=== PATIENT | male | born 1935 | race Caucasian/White ===

== ENCOUNTER 2018-10-30 10:47 | Emergency (ER) | payer MEDICARE ==
[2018-10-30 11:06] LABS: BASO % 0.6 % (0-6); EOS % 2.1 % (0-6); GRAN % 74.8 % (47-80); HEMATOCRIT 43.1 % (42.0-52.0); HEMOGLOBIN 13.6 gm/dl (14.0-18.0); LYMPH % 16.5 % (16-45); MEAN CELL VOLUME 94.1 fl (81-97); MEAN CORPUSCULAR HEMOGLOBIN 29.6 pg (27-33); MEAN CORPUSCULAR HGB CONC 31.6 g/dl (32-36); MEAN PLATELET VOLUME 9.1 fl (7.4-10.4); PLATELET COUNT 235 K/uL (130-400); RED BLOOD COUNT 4.58 M/uL (4.40-5.70); RED CELL DISTRIBUTION WIDTH 13.4 % (11.5-14.5); WHITE BLOOD COUNT W/O DIFF 6.7 K/uL (4.2-12.2)
[2018-10-30 11:09] LABS: URINE APPEARANCE CLEAR; URINE BILIRUBIN NEGATIVE (NEGATIVE); URINE BLOOD TRACE-I (NEGATIVE); URINE COLOR YELLOW; URINE GLUCOSE (UA) NEGATIVE (NEGATIVE); URINE KETONE 15 mg/dL (NEGATIVE); URINE LEUKOCYTE ESTERASE NEGATIVE (NEGATIVE); URINE NITRITE NEGATIVE (NEGATIVE); URINE UROBILINOGEN 0.2 E.U./dL (0.20 - 1.00)
--- NOTE | 2018-10-30 11:12 | Emergency Department Record ---
History of Present Illness - General Chief Complaint: Fall Injury Stated Complaint: FELL OUT OF BED Time Seen by Provider: 10/30/18 10:50 Source: Patient, Family, EMS Mode of Arrival: Stretcher Limitations: No limitations - History of Present Illness Initial Comments: family found pt on floor this am. pt states he fell from a standing position. he states he hit his head and his l shoulder hurts. there was no loc. MD Complaint: Fall -: Unknown Fall From: Standing When Fall Occurred: Unsure Fall Witnessed: No Place Fall Occurred: Home Loss of Consciousness: Unsure Prolonged Down Time?: Unclear Symptoms Prior to Fall: None Location: Head Location - Extremities: Left: Shoulder Severity: Moderate Associated Symptoms: Denies - [place] Coma Scale Eye Response: (4) Open spontaneously Motor Response: (6) Obeys commands Verbal Response: (5) Oriented Michael Total: 15 - Related Data Home Medications Medication Instructions Recorded Confirmed Last Taken Acetaminophen [Tylenol Extra 500 mg PO BID 10/30/18 10/30/18 Unknown Strength] Ascorbic Acid [Vitamin C with Nora 1,000 mg PO QAM 10/30/18 10/30/18 Unknown Hips] Brimonidine Tartrate/Timolol 5 ml OP DAILY 10/30/18 10/30/18 Unknown [Combigan 0.2%-0.5% Eye Drops] Calcium Carbonate/Vitamin D3 1 each PO QHS 10/30/18 10/30/18 Unknown [Calcium 500 + Vit D3 400 Tab] Carvedilol 6.25 mg PO BID 10/30/18 10/30/18 Unknown Cholecalciferol (Vitamin D3) 2,000 unit PO QAM 10/30/18 10/30/18 Unknown [Vitamin D3] Cyanocobalamin (Vitamin B-12) 3,000 mcg PO QAM 10/30/18 10/30/18 Unknown [B-12 Dual Spectrum] Insulin Regular, Human [Novolin R] 1 unit IJ DAILY 10/30/18 10/30/18 Unknown Isosorbide Mononitrate [Imdur] 30 mg PO QHS 10/30/18 10/30/18 Unknown Isosorbide Mononitrate [Imdur] 60 mg PO QAM 10/30/18 10/30/18 Unknown Latanoprost/Pf [Latanoprost 0.005% 7.5 ml OP QHS 10/30/18 10/30/18 Unknown Eye Drop] Levetiracetam 500 mg PO BID 10/30/18 10/30/18 Unknown Levothyroxine Sodium 25 mcg PO QAM 10/30/18 10/30/18 Unknown Loratadine 10 mg PO QHS 10/30/18 10/30/18 Unknown Metoprolol Succinate 100 mg PO QAM 10/30/18 10/30/18 Unknown Netarsudil Mesylate [Rhopressa] 2.5 ml OP QAM 10/30/18 10/30/18 Unknown Ubidecarenone [Coq-10] 200 mg PO QAM 10/30/18 10/30/18 Unknown Allergies Allergy/AdvReac Type Severity Reaction Status Date / Time No Known Drug Allergies Allergy Verified 10/30/18 11:31 Travel Screening - Travel/Exposure Within Last 30 Days Have you traveled within the last 30 days?: No Review of Systems Reviewed: No additional complaints except as noted below Constitutional: Reports: As per HPI. Denies: Chills, Fever, Malaise, Night sweats, Weakness, Weight change Eyes: Reports: As per HPI. Denies: Eye discharge, Eye pain, Photophobia, Vision change ENT: Reports: As per HPI. Denies: Congestion, Dental pain, Ear pain, Epistaxis , Hearing loss, Throat pain Respiratory: Reports: As per HPI. Denies: Cough, Dyspnea, Hemoptysis, Stridor, Wheezes Cardiovascular: Reports: As per HPI. Denies: Arrhythmia, Chest pain, Dyspnea on exertion, Edema, Murmurs, Orthopnea, Palpitations, Paroxysmal nocturnal dyspnea, Rheumatic Fever, Syncope Endocrine: Reports: As per HPI. Denies: Fatigue, Heat or cold intolerance, Polydipsia, Polyuria Gastrointestinal: Reports: As per HPI. Denies: Abdominal pain, Constipation, Diarrhea, Hematemesis, Hematochezia, Melena, Nausea, Vomiting Genitourinary: Reports: As per HPI. Denies: Dysuria, Frequency, Hematuria, Incontinence, Retention, Testicular pain, Testicular mass, Urgency Musculoskeletal: Reports: As per HPI. Denies: Arthralgia, Back pain, Gout, Joint swelling, Myalgia, Neck pain Skin: Reports: As per HPI. Denies: Bruising, Change in color, Change in hair/ nails, Lesions, Pruritus, Rash Neurological: Reports: As per HPI. Denies: Abnormal gait, Confusion, Headache, Numbness, Paresthesias, Seizure, Tingling, Tremors, Vertigo, Weakness Psychiatric: Reports: As per HPI. Denies: Anxiety, Auditory hallucinations, Depression, Homicidal thoughts, Suicidal thoughts, Visual hallucinations Hematological/Lymphatic: Reports: As per HPI. Denies: Anemia, Blood Clots, Easy bleeding, Easy bruising, Swollen glands Past Medical History - SOCIAL HISTORY Smoking Status: Former smoker Alcohol Use: None Drug Use: None - RESPIRATORY Hx Respiratory Disorders: Yes Hx Bronchitis: Yes Hx COPD: Yes Hx Dyspnea: Yes - CARDIOVASCULAR Hx Cardio Disorders: Yes Hx Abnormal EKG: Yes Hx Cardiac Cath: Yes Hx Edema: Yes Hx Hypertension: Yes Hx Irregular Heartbeat: Yes - NEURO Hx Neuro Disorders: Yes Hx Headaches: Yes (frequent) - GI Hx GI Disorders: No - Hx Genitourinary Disorders: Yes Hx Prostate Problems: Yes (prostate surgery) - ENDOCRINE Hx Endocrine Disorders: Yes Hx Diabetes: Yes Hx Thyroid Disease: Yes - MUSCULOSKELETAL Hx Musculoskeletal Disorders: Yes Comment:: lumbar laminectomy - PSYCH Hx Psych Problems: No - HEMATOLOGY/ONCOLOGY Hx Hematology/Oncology Disorders: No Family Medical History Any Significant Family History?: Yes Hx Diabetes: Father, Mother Hx Heart Disease: Father Physical Exam - General General Appearance: Alert, Oriented x3, Cooperative, Mild distress - Head Head exam: Normal inspection - Eye Eye exam: Normal appearance, PERRL, EOMI Pupils: Normal accommodation - ENT ENT exam: Normal exam, Mucous membranes moist, Normal external ear exam, Normal orophraynx Ear exam: Normal external inspection. negative: External canal tenderness Nasal Exam: Normal inspection. negative: Discharge, Sinus tenderness Mouth exam: Normal external inspection, Tongue normal Teeth exam: Normal inspection. negative: Dental caries Throat exam: Normal inspection. negative: Tonsillar erythema, Tonsillar exudate - Neck Neck exam: Normal inspection, Full ROM. negative: Tenderness - Respiratory Respiratory exam: Normal lung sounds bilaterally. negative: Respiratory distress - Cardiovascular Cardiovascular Exam: Regular rate, Normal rhythm, Normal heart sounds - GI/Abdominal GI/Abdominal exam: Soft, Normal bowel sounds. negative: Tenderness - Rectal Rectal exam: Deferred - exam: Deferred - Extremities Extremities exam: Normal inspection, Full ROM, Normal capillary refill, Tenderness (l shoulder) - Back Back exam: Reports: Normal inspection, Full ROM. Denies: Muscle spasm, Rash noted, Tenderness - Neurological Neurological exam: Alert, CN II-XII intact, Oriented X3 - Psychiatric Psychiatric exam: Normal affect, Normal mood - Skin Skin exam: Dry, Intact, Normal color, Warm Course Vital Signs 10/30/18 10:54 Temperature 97.7 F Pulse Rate 83 Respiratory 18 Rate Pulse Ox 89 L - Reevaluation(s) Reevaluation #1: 10/30/18 13:10 pt did well. pt d/w dr mustafa Medical Decision Making - Lab Data Result diagrams: 10/30/18 10:59 10/30/18 10:59 Disposition Disposition: Discharge Clinical Impression: Multiple contusions, Pleural effusion Fall Qualifiers: Encounter type: initial encounter Qualified Code(s): W19.XXXA - Unspecified fall, initial encounter Hypertension Qualifiers: Hypertension type: essential hypertension Qualified Code(s): I10 - Essential ( primary) hypertension Disposition: Home, Self-Care Condition: (1) Good Instructions: Fall Prevention for Older Adults (ED), Pleural Effusion (ED) Additional Instructions: follow up with Dr. Mustafa next . return sooner if worse. monitor closely. discuss blood pressure with dr mustafa Forms: Patient Portal Access Quality - Quality Measures Quality Measures: N/A - Blood Pressure Screening Does Patient Have Any of the Following: Active Dx of HTN Blood Pressure Classification: Hypertensive Reading Systolic Measurement: 201 Diastolic Measurement: 93 Screening for High Blood Pressure: Patient Exclusion, Hx of HTN [G9744]
[2018-10-30 11:16] LABS: URINE EPITHELIAL CELLS NONE SEEN (FEW); URINE RBC 0 - 2 (NONE SEEN); URINE WBC NONE SEEN (0-2/hpf)
[2018-10-30 11:21] LABS: BLOOD UREA NITROGEN 21 mg/dL (8-23); CREATININE 1.1 mg/dL (0.7-1.2); EST GLOMERULAR FILTRATION RATE > 60 mL/min
[2018-10-30 11:24] LABS: GLUCOSE,RANDOM 129 mg/dL (74-109)
--- NOTE | 2018-10-31 12:36 | CT SCAN REPORT ---
EXAM: CT OF THE CERVICAL SPINE WITHOUT CONTRAST HISTORY: FALL. TECHNIQUE: Sequential axial images were obtained through the cervical spine without intravenous contrast administration. Sagittal and coronal reformatted images were performed. FINDINGS: There is multilevel degenerative change. No evidence of fracture, subluxation or perched facet. There is anterior spondylotic spurring. The prevertebral soft tissues are normal. The airway is patent. The visualized lung apices are normal. IMPRESSION: MULTILEVEL DEGENERATIVE CHANGE. NO EVIDENCE OF FRACTURE, SUBLUXATION, OR PERCHED FACET. INCIDENTAL NOTE IS MADE OF A LARGE LEFT PLEURAL EFFUSION. JOB NUMBER: [id number] [facility]
--- NOTE | 2018-10-31 12:42 | RADIOLOGY REPORT ---
EXAM: RIGHT SHOULDER HISTORY: FALL. TECHNIQUE: Three views of the right shoulder were performed. FINDINGS: There is severe degenerative change of the glenohumeral joint space. There is joint space narrowing with hypertrophic spurring of the humeral head and glenoid. The acromioclavicular joint appears normal. IMPRESSION: SEVERE DEGENERATIVE CHANGE OF THE GLENOHUMERAL JOINT SPACE. NO EVIDENCE OF FRACTURE. JOB NUMBER: [id number] [facility]
--- NOTE | 2018-10-31 12:45 | CT SCAN REPORT ---
EXAM: CT OF THE BRAIN WITHOUT CONTRAST HISTORY: FALL. TECHNIQUE: Sequential axial images were obtained from the foramen magnum to the vertex without contrast administration. FINDINGS: Age appropriate cortical atrophy with periventricular small vessel ischemia. No large territorial infarct, hemorrhage, mass effect, or midline shift. The orbits, paranasal sinuses, and mastoid air cells are normal. No depressed skull fracture. IMPRESSION: PERIVENTRICULAR SMALL VESSEL ISCHEMIA. NO ACUTE INTRACRANIAL ABNORMALITY IS APPRECIATED. JOB NUMBER: [id number] [facility]
--- NOTE | 2018-10-31 12:48 | RADIOLOGY REPORT ---
EXAM: CHEST, TWO VIEWS HISTORY: DIFFICULTY IN BREATHING. TECHNIQUE: Frontal and lateral views of the chest were performed. FINDINGS: Postop sternotomy wires. The heart size is normal. Moderate left pleural effusion. Mild pulmonary vascular congestion. Degenerative change of both shoulder girdles. IMPRESSION: 1. MODERATE LEFT PLEURAL EFFUSION. MILD PULMONARY VASCULAR CONGESTION. 2. DEGENERATIVE CHANGE OF BOTH SHOULDER GIRDLES. JOB NUMBER: [id number] [facility]
== END 2018-10-30 14:36 | disposition home or self-care (01) ==
LOC: ER 10:47
DX: S40.012A Contusion of left shoulder, initial encounter (principal); S40.011A Contusion of right shoulder, initial encounter; S00.93XA Contusion of unspecified part of head, initial encounter; J90 Pleural effusion, not elsewhere classified; I10 Essential (primary) hypertension; J44.9 Chronic obstructive pulmonary disease, unspecified; Z87.891 Personal history of nicotine dependence; Z79.84 Long term (current) use of oral hypoglycemic drugs; Z79.4 Long term (current) use of insulin; Z79.01 Long term (current) use of anticoagulants; W06.XXXA Fall from bed, initial encounter; Y92.009 Unspecified place in unspecified non-institutional (private) residence as the place of occurrence of the external cause
CPT/HCPCS: 70450; 71046; 72125; 80048; 81001; 85025; 93005; 93010; 99284

== ENCOUNTER 2019-03-22 09:42 | Emergency (ER) | payer MEDICARE ==
--- NOTE | 2019-03-22 10:03 | Emergency Department Record ---
History of Present Illness - General Stated Complaint: FALL Time Seen by Provider: 03/22/19 09:54 Source: Patient, Family, EMS (daughter and career consultant) Mode of Arrival: EMS Limitations: No limitations - History of Present Illness Initial Comments: Pt from independent living situation by EMS with C Collar in place. Pt found on floor in bathroom after fall. Not witnessed. Unsure as to symptoms prior to fall. Pt is without complaint on exam. No AVILA, neck pain, CP, or extremity pains. Alert and appropriate with answers. Daughter and career consultant present who relate recently he has been "more tired" than usual. No related hx of illness/fever. Not taking aspirin or anticoags. 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 Witnessed: No Place Fall Occurred: Home Loss of Consciousness: None Prolonged Down Time?: No Severity: Mild - Related Data Home Medications Medication Instructions Recorded Confirmed Last Taken Sertraline HCl [Zoloft] 25 mg PO QPM 03/22/19 03/22/19 03/21/19 Allergies Allergy/AdvReac Type Severity Reaction Status Date / Time No Known Drug Allergies Allergy Verified 03/22/19 10:09 Review of Systems Constitutional: Denies: Chills, Fever Eyes: Denies: Photophobia ENT: Denies: Congestion Respiratory: Denies: Cough, Dyspnea Cardiovascular: Denies: Arrhythmia, Chest pain, Syncope Endocrine: Reports: Fatigue. Denies: Polydipsia, Polyuria Gastrointestinal: Denies: Abdominal pain, Constipation, Nausea (some soft brown stool but "not diarrhea". ), Vomiting Musculoskeletal: Reports: As per HPI. Denies: Back pain, Joint swelling, Neck pain Skin: Denies: Bruising, Rash Neurological: Denies: Confusion, Headache Psychiatric: Denies: Anxiety Hematological/Lymphatic: Reports: Anemia Past Medical History - SOCIAL HISTORY Smoking Status: Former smoker Drug Use: None - RESPIRATORY Hx Respiratory Disorders: Yes Hx Bronchitis: Yes Hx COPD: Yes Hx Dyspnea: Yes - CARDIOVASCULAR Hx Cardio Disorders: Yes Hx Abnormal EKG: Yes Hx Cardiac Cath: Yes Hx Edema: Yes Hx Hypertension: Yes Hx Irregular Heartbeat: Yes - NEURO Hx Neuro Disorders: Yes Hx Headaches: Yes (frequent) - GI Hx GI Disorders: No - Hx Genitourinary Disorders: Yes Hx Prostate Problems: Yes (prostate surgery) - ENDOCRINE Hx Endocrine Disorders: Yes Hx Diabetes: Yes Hx Thyroid Disease: Yes - MUSCULOSKELETAL Hx Musculoskeletal Disorders: Yes Comment:: lumbar laminectomy - PSYCH Hx Psych Problems: No - HEMATOLOGY/ONCOLOGY Hx Hematology/Oncology Disorders: No Family Medical History Hx Diabetes: Father, Mother Hx Heart Disease: Father Physical Exam - General General Appearance: Alert, Oriented x3, Cooperative, No acute distress - Head Head exam: Atraumatic, Normocephalic, Normal inspection Head exam detail: negative: Abrasion, Contusion, General tenderness, Hematoma, Laceration - Eye Eye exam: Normal appearance, PERRL, EOMI - ENT ENT exam: Mucous membranes moist, Normal external ear exam, Normal orophraynx Ear exam: Normal external inspection Nasal Exam: Normal inspection Mouth exam: Normal external inspection - Neck Neck exam: Normal inspection, Full ROM. negative: Tenderness (No pain with palpation of posterior neck and passive ROM. ) - Respiratory Respiratory exam: Normal lung sounds bilaterally. negative: Rhonchi, Wheezes - Cardiovascular Cardiovascular Exam: Regular rate, Normal rhythm, Normal heart sounds. negative: Tachycardia Peripheral Pulses: 2+: Radial (R), Radial (L) - GI/Abdominal GI/Abdominal exam: Soft, Normal bowel sounds. negative: Distended, Tenderness - Extremities Extremities exam: Normal inspection, Full ROM. negative: Calf tenderness, Joint swelling, Tenderness (Pelvis stable, hips full ROM to figure 4 without pain. No pain to shoulders with ROM. ) - Back Back exam: Reports: Normal inspection. Denies: Paraspinal tenderness, Tenderness - Neurological Neurological exam: Alert, Oriented X3. negative: Motor sensory deficit - Psychiatric Psychiatric exam: Normal affect, Normal mood - Skin Skin exam: Normal color. negative: Rash Course - Reevaluation(s) Reevaluation #1: 03/22/19 10:06 No evidence of trauma from reported fall. Hx of "tired" and we will check labs and EKG. Family at bedside. Procedures - EKG Initial Date: 03/22/19 Time: 10:10 EKG: No Acute Changes (no change from 10-30-18) Medical Decision Making - Lab Data Result diagrams: 03/22/19 10:00 03/22/19 10:00 Disposition Disposition: Discharge Clinical Impression: Fall in elderly patient Disposition: Home, Self-Care Condition: (2) Stable Instructions: Fall Prevention for Older Adults (ED) Additional Instructions: Continue current care and see your physician in 2-3 days. Return here as needed to the ED. Fall precautions at home. Forms: Patient Portal Access Time of Disposition: 12:04 Quality - Quality Measures Quality Measures: N/A - Blood Pressure Screening Does Patient Have Any of the Following: No, Active Dx of HTN Blood Pressure Classification: Hypertensive Reading Systolic Measurement: 195 Diastolic Measurement: 98 Screening for High Blood Pressure: Patient Exclusion, Hx of HTN [G9744]
[2019-03-22 10:13] LABS: ABSOLUTE NEUTROPHIL COUNT 6.98; HEMOGLOBIN 14.1 gm/dl (14.0-18.0); MEAN CELL VOLUME 95.4 fl (81-97); MEAN CORPUSCULAR HEMOGLOBIN 30.6 pg (27-33); MEAN PLATELET VOLUME 9.8 fl (7.4-10.4); PLATELET COUNT 274 K/uL (130-400); RED BLOOD COUNT 4.61 M/uL (4.40-5.70); RED CELL DISTRIBUTION WIDTH 13.7 % (11.5-14.5); WHITE BLOOD COUNT W/O DIFF 8.5 K/uL (4.2-12.2)
[2019-03-22 10:21] LABS: PLATELET ESTIMATE NORMAL (NORMAL)
[2019-03-22 10:22] LABS: BLOOD UREA NITROGEN 18 mg/dL (8-23); EST GLOMERULAR FILTRATION RATE > 60 mL/min
[2019-03-22 10:25] LABS: GLUCOSE,RANDOM 133 mg/dL (74-109)
[2019-03-22] MEDS ORDERED: ONDANSETRON HCL IV 4 MG/2 ML VIAL IVP ONE (11:24)
--- NOTE | 2019-03-24 08:53 | RADIOLOGY REPORT ---
EXAM: CHEST, TWO VIEWS HISTORY: FALL. HISTORY OF PLEURAL EFFUSION. TECHNIQUE: Two views of the chest were obtained. Comparison: 01/14/19. FINDINGS: Previous median sternotomy and CABG. The cardiomediastinal silhouette is stable. There is a similar moderate left basilar opacity probably a combination of pleural fluid and atelectasis/infiltrate. The right lung is grossly clear. Moderate degenerative changes throughout the thoracic spine. IMPRESSION: SIMILAR MODERATE LEFT BASILAR OPACITY PROBABLY A COMBINATION OF PLEURAL FLUID AND ATELECTASIS/INFILTRATE. JOB [facility]BER: [id number] [facility]
== END 2019-03-22 12:22 | disposition home or self-care (01) ==
LOC: ER 09:42
DX: Z91.81 History of falling (principal); W18.30XA Fall on same level, unspecified, initial encounter; Y92.009 Unspecified place in unspecified non-institutional (private) residence as the place of occurrence of the external cause; E11.8 Type 2 diabetes mellitus with unspecified complications; R54 Age-related physical debility; J44.9 Chronic obstructive pulmonary disease, unspecified; I10 Essential (primary) hypertension; Z87.891 Personal history of nicotine dependence; Z95.1 Presence of aortocoronary bypass graft
CPT/HCPCS: 99284 ×2; 96374; 80048; 85027; 71046; 93005; 93010; J2405

== ENCOUNTER 2019-06-13 13:03 | Inpatient (IN) | payer MEDICARE ==
[2019-06-13] MEDS ORDERED: IPRATROPIUM/ALBUTEROL (0.5MG/3MG) NEB INH ONE (13:08)
[2019-06-13] MEDS ORDERED: ALBUTEROL SULFATE (0.083%) 2.5 MG/3 ML NEB INH ONE (13:51)
[2019-06-13] MEDS ORDERED: FUROSEMIDE IV 40MG/4ML VIAL IVP ONE (13:53)
[2019-06-13] MEDS ORDERED: METHYLPREDNISOLONE PF 125MG/VIAL IVP ONE (13:53)
[2019-06-13 14:30] LABS: ABSOLUTE NEUTROPHIL COUNT 4.79; BASO % 0.6 % (0-6); EOS % 2.1 % (0-6); GRAN % 67.7 % (47-80); HEMATOCRIT 38.9 % (42.0-52.0); MEAN CELL VOLUME 96.8 fl (81-97); MEAN CORPUSCULAR HGB CONC 30.8 g/dl (32-36); MEAN PLATELET VOLUME 10.3 fl (7.4-10.4); MONO % 8.6 % (0-9); PLATELET COUNT 329 K/uL (130-400); RED BLOOD COUNT 4.02 M/uL (4.40-5.70); RED CELL DISTRIBUTION WIDTH 14.6 % (11.5-14.5); WHITE BLOOD COUNT W/O DIFF 7.1 K/uL (4.2-12.2)
[2019-06-13 14:32] LABS: MEAN CORPUSCULAR HEMOGLOBIN 29.8 pg (27-33)
[2019-06-13 14:40] LABS: BLOOD UREA NITROGEN 24 mg/dL (8-23); CREATININE 1.1 mg/dL (0.7-1.2); EST GLOMERULAR FILTRATION RATE > 60 mL/min
[2019-06-13 14:41] LABS: TOTAL PROTEIN 7.5 g/dL (6.6-8.7)
[2019-06-13 14:43] LABS: GLUCOSE,RANDOM 162 mg/dL (74-109)
[2019-06-13 14:46] LABS: ALB/GLOB RATIO 1.3 (1.1-1.8); ALBUMIN 4.3 g/dL (4.0-5.0); ALKALINE PHOSPHATASE 71 U/L (40-129); ALT/SGPT 12 U/L (<41); AST/SGOT 17 U/L (10.0-50.0)
[2019-06-13] MEDS ORDERED: SPS 15 GM/60 ML PO ONE (15:47)
[2019-06-13] MEDS ORDERED: CEFTRIAXONE 1GM/50ML BAG 1 GM/50 ML BAG IVPB ONE (16:55)
--- NOTE | 2019-06-13 17:42 | Emergency Department Record ---
History of Present Illness - General Chief Complaint: Difficulty Breathing Stated Complaint: TRINIDAD Time Seen by Provider: 06/13/19 13:20 Source: Patient, Family, EMS Mode of Arrival: Ambulatory Limitations: No limitations - History of Present Illness Initial Comments: pt c/o sob. his family fears he might have aspirated. he has no c/o cp. he has been coughing and congested MD Complaint: Cough, Shortness of breath -: Unknown Known History Of: COPD Associated Symptoms: Sputum production Treatments Prior to Arrival: None - Related Data Home Medications Medication Instructions Recorded Confirmed Last Taken Amlodipine Besylate [Norvasc] 10 mg PO DAILY 06/13/19 06/13/19 06/13/19 Brimonidine Tartrate/Timolol 1 drop RIGHT EYE QPM 06/13/19 06/13/19 06/13/19 [Combigan 0.2%-0.5% Eye Drops] Calcium Carbonate/Vitamin D3 1 tab PO BID 06/13/19 06/13/19 06/13/19 [Calcium 500-Vit D3 400 Tablet] Insulin Aspart [Novolog Flexpen] 10 units SQ ASDIR 06/13/19 06/13/19 06/13/19 Insulin Glargine,Hum.rec.anlog 5 units SQ QPM 06/13/19 06/13/19 06/13/19 [Lantus] Levothyroxine Sodium [Synthroid] 125 mcg PO DAILY 06/13/19 06/13/19 06/13/19 Losartan Potassium 100 mg PO DAILY 06/13/19 06/13/19 06/13/19 Metformin HCl 1,000 mg PO BID 06/13/19 06/13/19 06/13/19 Metoprolol Tartrate [Lopressor] 50 mg PO DAILY 06/13/19 06/13/19 06/13/19 Netarsudil Mesylate [Rhopressa] 1 drop EACH EYE QAM 06/13/19 06/13/19 06/13/19 Rivaroxaban [Xarelto] 15 mg PO QPM 06/13/19 06/13/19 06/12/19 Sertraline HCl [Zoloft] 25 mg PO QAM 06/13/19 06/13/19 06/13/19 Allergies Allergy/AdvReac Type Severity Reaction Status Date / Time No Known Drug Allergies Allergy Verified 03/22/19 10:09 Travel Screening - Travel/Exposure Within Last 30 Days Have you traveled within the last 30 days?: No - Travel/Exposure Within Last Year Have you traveled outside the [place] in the last year?: No - Additonal Travel Details Have you been exposed to anyone with a communicable illness?: No - Travel Symptoms Symptom Screening: None Review of Systems Reviewed: No additional complaints except as noted below Constitutional: Reports: As per HPI. Denies: Chills, Fever, Malaise, Night sweats, Weakness, Weight change Eyes: Reports: As per HPI. Denies: Eye discharge, Eye pain, Photophobia, Vision change ENT: Reports: As per HPI. Denies: Congestion, Dental pain, Ear pain, Epistaxis, Hearing loss, Throat pain Respiratory: Reports: As per HPI. Denies: Cough, Dyspnea, Hemoptysis, Stridor, Wheezes Cardiovascular: Reports: As per HPI. Denies: Arrhythmia, Chest pain, Dyspnea on exertion, Edema, Murmurs, Orthopnea, Palpitations, Paroxysmal nocturnal dyspnea, Rheumatic Fever, Syncope Endocrine: Reports: As per HPI. Denies: Fatigue, Heat or cold intolerance, Polydipsia, Polyuria Gastrointestinal: Reports: As per HPI. Denies: Abdominal pain, Constipation, Diarrhea, Hematemesis, Hematochezia, Melena, Nausea, Vomiting Genitourinary: Reports: As per HPI. Denies: Dysuria, Frequency, Hematuria, Incontinence, Retention, Testicular pain, Testicular mass, Urgency Musculoskeletal: Reports: As per HPI. Denies: Arthralgia, Back pain, Gout, Joint swelling, Myalgia, Neck pain Skin: Reports: As per HPI. Denies: Bruising, Change in color, Change in hair/nails, Lesions, Pruritus, Rash Neurological: Reports: As per HPI. Denies: Abnormal gait, Confusion, Headache, Numbness, Paresthesias, Seizure, Tingling, Tremors, Vertigo, Weakness Psychiatric: Reports: As per HPI. Denies: Anxiety, Auditory hallucinations, Depression, Homicidal thoughts, Suicidal thoughts, Visual hallucinations Hematological/Lymphatic: Reports: As per HPI. Denies: Anemia, Blood Clots, Easy bleeding, Easy bruising, Swollen glands Past Medical History - SOCIAL HISTORY Smoking Status: Former smoker Alcohol Use: None Drug Use: None - RESPIRATORY Hx Respiratory Disorders: Yes Hx Bronchitis: Yes Hx COPD: Yes Hx Dyspnea: Yes - CARDIOVASCULAR Hx Cardio Disorders: Yes Hx Abnormal EKG: Yes Hx Cardiac Cath: Yes Hx Edema: Yes Hx Hypertension: Yes Hx Irregular Heartbeat: Yes - NEURO Hx Neuro Disorders: Yes Hx Headaches: Yes (frequent) - GI Hx GI Disorders: No - Hx Genitourinary Disorders: Yes Hx Prostate Problems: Yes (prostate surgery) - ENDOCRINE Hx Endocrine Disorders: Yes Hx Diabetes: Yes Hx Thyroid Disease: Yes - MUSCULOSKELETAL Hx Musculoskeletal Disorders: Yes Comment:: lumbar laminectomy - PSYCH Hx Psych Problems: No - HEMATOLOGY/ONCOLOGY Hx Hematology/Oncology Disorders: No Family Medical History Any Significant Family History?: No Hx Diabetes: Father, Mother Hx Heart Disease: Father Physical Exam - General General Appearance: Alert, Oriented x3, Cooperative, Mild distress - Head Head exam: Normal inspection - Eye Eye exam: Normal appearance, PERRL, EOMI Pupils: Normal accommodation - ENT ENT exam: Normal exam, Mucous membranes moist, Normal external ear exam, Normal orophraynx Ear exam: Normal external inspection. negative: External canal tenderness Nasal Exam: Normal inspection. negative: Discharge, Sinus tenderness Mouth exam: Normal external inspection, Tongue normal Teeth exam: Normal inspection. negative: Dental caries Throat exam: Normal inspection. negative: Tonsillar erythema, Tonsillar exudate - Neck Neck exam: Normal inspection, Full ROM. negative: Tenderness - Respiratory Respiratory exam: Rales, Wheezes. negative: Respiratory distress - Cardiovascular Cardiovascular Exam: Regular rate, Normal rhythm, Normal heart sounds - GI/Abdominal GI/Abdominal exam: Soft, Normal bowel sounds. negative: Tenderness - Rectal Rectal exam: Deferred - exam: Deferred - Extremities Extremities exam: Normal inspection, Full ROM, Normal capillary refill. negative: Tenderness - Back Back exam: Reports: Normal inspection, Full ROM. Denies: Muscle spasm, Rash noted, Tenderness - Neurological Neurological exam: Alert, CN II-XII intact, Normal gait, Oriented X3 - Psychiatric Psychiatric exam: Normal affect, Normal mood - Skin Skin exam: Dry, Intact, Normal color, Warm Course Vital Signs 06/13/19 06/13/19 06/13/19 13:06 13:26 16:21 Temperature 97.7 F Pulse Rate 84 91 H 74 Respiratory 28 H 18 18 Rate Blood Pressure 200/97 Pulse Ox 95 97 97 - Reevaluation(s) Reevaluation #1: 06/13/19 17:45 pt is feeling better. cxr shows pulmonary edema and pleural effusion with possibility of underlying pneumonia Reevaluation #2: 06/13/19 17:48 d/w lab and they felt blood might be slightly hemolyzed but not much. so pt was given kayaxelate Medical Decision Making - Lab Data Result diagrams: 06/13/19 13:25 06/13/19 13:25 Lab Results 06/13/19 06/13/19 Range/Units 13:25 13:25 WBC 7.1 (4.2-12.2) K/uL RBC 4.02 L (4.40-5.70) M/uL Hgb 12.0 L (14.0-18.0) gm/dl Hct 38.9 L (42.0-52.0) % MCV 96.8 (81-97) fl MCH 29.8 (27-33) pg MCHC 30.8 L (32-36) g/dl RDW 14.6 H (11.5-14.5) % Plt Count 329 (130-400) K/uL MPV 10.3 (7.4-10.4) fl Gran % 67.7 (47-80) % Lymphocytes % 21.0 (16-45) % Monocytes % 8.6 (0-9) % Eosinophils % 2.1 (0-6) % Basophils % 0.6 (0-6) % Absolute Neutrophils 4.79 Sodium 138 (136-145) mmol/L Potassium 5.4 H (3.4-4.5) mmol/L Chloride 103 (98-107) mmol/L Carbon Dioxide 21.0 L (22-29) mmol/L Anion Gap 14.0 (7-16) BUN 24 H (8-23) mg/dL Creatinine 1.1 (0.7-1.2) mg/dL Estimated GFR > 60 mL/min Random Glucose 162 H (74-109) mg/dL Calcium 10.0 (8.8-10.2) mg/dL Total Bilirubin 0.30 (0.2-1.0) mg/dL AST 17 (10.0-50.0) U/L ALT 12 (<41) U/L Alkaline Phosphatase 71 (40-129) U/L Troponin T 0.025 H (0-0.010) ng/mL NT-Pro-B Natriuret Pep 5186.00 H (<450) pg/mL Total Protein 7.5 (6.6-8.7) g/dL Albumin 4.3 (4.0-5.0) g/dL Globulin 3.2 (1.4-4.8) gm/dL Albumin/Globulin Ratio 1.3 (1.1-1.8) Disposition Disposition: Admit Clinical Impression: Hyperkalemia Pulmonary edema Qualifiers: Chronicity: acute Qualified Code(s): J81.0 - Acute pulmonary edema CHF (congestive heart failure) Qualifiers: Heart failure type: unspecified Heart failure chronicity: acute Qualified Code(s): I50.9 - Heart failure, unspecified Disposition: Still a Patient at [facility] Decision to Admit: Admit from ER Decision to Admit Date: 06/13/19 Decision to Admit Time: 17:52 Quality - Quality Measures Quality Measures: N/A - Blood Pressure Screening Does Patient Have Any of the Following: Active Dx of HTN Blood Pressure Classification: Hypertensive Reading Systolic Measurement: 200 Diastolic Measurement: 97 Screening for High Blood Pressure: Patient Exclusion, Hx of HTN [[id number]]
[2019-06-13] MEDS ORDERED: ALBUTEROL SULFATE (0.083%) 2.5 MG/3 ML NEB INH PRN (18:25)
[2019-06-13] MEDS ORDERED: NOVOLOG FLEXPEN (INSULIN ASPART) 100 UNITS/ML SQ SCH (18:25)
[2019-06-13] MEDS: CEFTRIAXONE 1GM/50ML BAG 1 GM/50 ML BAG IVPB SCH (19:31)
[2019-06-13] MEDS: LEVEMIR FLEXTOUCH 100 UNIT/ML INSULIN PEN SQ SCH (19:56)
--- NOTE | 2019-06-13 23:07 | History & Physical ---
History of Present Illness - Date of Service Date of Service for History & Physical: 06/14/19 - History of Present Illness Admitting Diagnosis: chf, pulmonary edema, hyperkalemia History of Present Illness: Mr. Grande is a 84 y/o male with history of CHF, COPD, Hypertension and Paroxysmal atrial fibrillation with increasing dyspnea over the past 1 week. The patient says that he began to have some mild leg swelling and then had shortness of breath when he walked. his caregiver who is with him notes that he can't sleep flat and that he has been getting progressively short of breath despite taking his medications as prescribed. She initially thought he may have aspirated food and so she decided to bring him into hospital. ED course: - On arrival to the ED the patient was noted to mildly dyspneic but was able to maintain oxygen saturations. His chest xray was suggestive of pulmonary edema and a pleural effusion of the left lung. The patient was put on 3 liters nasal cannula oxygen and diuretics administered imporving his symptoms. The patient also had a BNP of >5000 and Troponin elevation 0.025. The patient is admitted for exacerbation of congestive heart failure and COPD. PCP: Dr. Mark Julian Travel Screening - Travel/Exposure Within Last 30 Days Have you traveled within the last 30 days?: No - Travel/Exposure Within Last Year Have you traveled outside the [place] in the last year?: No - Additonal Travel Details Have you been exposed to anyone with a communicable illness?: No - Travel Symptoms Symptom Screening: None Review of Systems Constitutional: Reports: As per HPI. Denies: Chills, Fever, Malaise, Night sweats, Weakness, Weight change Eyes: Reports: As per HPI. Denies: Eye discharge, Eye pain, Photophobia, Vision change ENT: Reports: As per HPI. Denies: Congestion, Dental pain, Ear pain, Epistaxis, Hearing loss, Throat pain Respiratory: Reports: As per HPI. Denies: Cough, Dyspnea, Hemoptysis, Stridor, Wheezes Cardiovascular: Reports: As per HPI. Denies: Arrhythmia, Chest pain, Dyspnea on exertion, Edema, Murmurs, Orthopnea, Palpitations, Paroxysmal nocturnal dyspnea, Rheumatic Fever, Syncope Endocrine: Reports: As per HPI. Denies: Fatigue, Heat or cold intolerance, Polydipsia, Polyuria Gastrointestinal: Reports: As per HPI. Denies: Abdominal pain, Constipation, Diarrhea, Hematemesis, Hematochezia, Melena, Nausea, Vomiting Genitourinary: Reports: As per HPI. Denies: Dysuria, Frequency, Hematuria, Incontinence, Retention, Testicular pain, Testicular mass, Urgency Musculoskeletal: Reports: As per HPI. Denies: Arthralgia, Back pain, Gout, Joint swelling, Myalgia, Neck pain Skin: Reports: As per HPI. Denies: Bruising, Change in color, Change in hair /nails, Lesions, Pruritus, Rash Neurological: Reports: As per HPI. Denies: Abnormal gait, Confusion, Headache, Numbness, Paresthesias, Seizure, Tingling, Tremors, Vertigo, Weakness Psychiatric: Reports: As per HPI. Denies: Anxiety, Auditory hallucinations, Depression, Homicidal thoughts, Suicidal thoughts, Visual hallucinations Hematological/Lymphatic: Reports: As per HPI. Denies: Anemia, Blood Clots, Easy bleeding, Easy bruising, Swollen glands Past Medical History - SOCIAL HISTORY Smoking Status: Former smoker Alcohol Use: None Drug Use: None - RESPIRATORY Hx Respiratory Disorders: Yes Hx Bronchitis: Yes Hx COPD: Yes Hx Dyspnea: Yes - CARDIOVASCULAR Hx Cardio Disorders: Yes Hx Abnormal EKG: Yes Hx Cardiac Cath: Yes Hx Edema: Yes Hx Hypertension: Yes Hx Irregular Heartbeat: Yes - NEURO Hx Neuro Disorders: Yes Hx Headaches: Yes (frequent) - GI Hx GI Disorders: No - Hx Genitourinary Disorders: Yes Hx Prostate Problems: Yes (prostate surgery) - ENDOCRINE Hx Endocrine Disorders: Yes Hx Diabetes: Yes Hx Thyroid Disease: Yes - MUSCULOSKELETAL Hx Musculoskeletal Disorders: Yes Comment:: lumbar laminectomy - PSYCH Hx Psych Problems: No - HEMATOLOGY/ONCOLOGY Hx Hematology/Oncology Disorders: No Family Medical History Any Significant Family History?: Yes Hx Diabetes: Father, Mother Hx Heart Disease: Father H&P Meds/Allergies - Allergies Allergies: Allergies Allergy/AdvReac Type Severity Reaction Status Date / Time No Known Drug Allergies Allergy Verified 03/22/19 10:09 - Home Medications Home Medications Medication Instructions Recorded Confirmed Last Taken Amlodipine Besylate [Norvasc] 10 mg PO DAILY 06/13/19 06/13/19 06/13/19 Brimonidine Tartrate/Timolol 1 drop RIGHT EYE QPM 06/13/19 06/13/19 06/13/19 [Combigan 0.2%-0.5% Eye Drops] Calcium Carbonate/Vitamin D3 1 tab PO BID 06/13/19 06/13/19 06/13/19 [Calcium 500-Vit D3 400 Tablet] Insulin Aspart [Novolog Flexpen] 10 units SQ ASDIR 06/13/19 06/13/19 06/13/19 Insulin Glargine,Hum.rec.anlog 5 units SQ QPM 06/13/19 06/13/19 06/13/19 [Lantus] Levothyroxine Sodium [Synthroid] 125 mcg PO DAILY 06/13/19 06/13/19 06/13/19 Losartan Potassium 100 mg PO DAILY 06/13/19 06/13/19 06/13/19 Metformin HCl 1,000 mg PO BID 06/13/19 06/13/19 06/13/19 Metoprolol Tartrate [Lopressor] 50 mg PO DAILY 06/13/19 06/13/19 06/13/19 Netarsudil Mesylate [Rhopressa] 1 drop EACH EYE QAM 06/13/19 06/13/19 06/13/19 Rivaroxaban [Xarelto] 15 mg PO QPM 06/13/19 06/13/19 06/12/19 Sertraline HCl [Zoloft] 25 mg PO QAM 06/13/19 06/13/19 06/13/19 - Active Medications Active Medications: Current Medications Acetaminophen (Tylenol 500mg Tab) 1,000 mg PO Q6H PRN PRN Reason: PAIN - MILD(1-4)/FEVER Albuterol Sulfate (Albuterol Sulfate) 2.5 mg INH RESP.Q4H.WA PRN PRN Reason: DIFFICULTY IN BREATHING Amlodipine Besylate (Norvasc) 10 mg PO DAILY [facility] Furosemide (Lasix Iv) 40 mg IVP DAILY [facility] CEFTRIAXONE 1GM/50ML BAG (Ceftriaxone 1 Gm-D5w Bag) 1 gm in 50 mls @ 100 mls/hr IVPB Q12H [facility] Last Admin: 06/13/19 19:31 Dose: Not Given Documented by: Insulin Aspart (Novolog Flexpen) 10 unit SQ ASDIR [facility] Insulin Detemir (Levemir Flextouch) 5 unit SQ QPM [facility] Last Admin: 06/13/19 19:56 Dose: 5 unit Documented by: Levothyroxine Sodium (Synthroid) 125 mcg PO [id number] [facility] Losartan Potassium (Losartan Potassium) 100 mg PO DAILY [facility] Metformin HCl (Glucophage Ir) 1,000 mg PO BIDWM [facility] Metoprolol Tartrate (Lopressor) 50 mg PO DAILY [facility] Non-Formulary Medication (Brimonidine Tartrate/Timolol [Combigan 0.2%-0.5% Eye Drops]) 1 drop RIGHT EYE QPM [facility] Non-Formulary Medication (Netarsudil Mesylate [Rhopressa]) 1 drop EACH EYE QAM [facility] Rivaroxaban (Xarelto) 15 mg PO QPM [facility] Sertraline HCl (Zoloft) 25 mg PO DAILY [facility] Physical Exam - Vital Signs Vital Signs: Vital Signs - Last 24 Hrs Temp Pulse Pulse Resp BP BP Pulse Ox 06/13/19 21:00 81 18 06/13/19 20:57 98.5 F 81 18 154/62 93 L 06/13/19 18:30 79 18 126/76 97 06/13/19 18:25 98.4 F 87 16 184/72 94 L 06/13/19 16:21 74 18 97 06/13/19 16:00 75 16 167/77 96 06/13/19 15:30 72 18 165/70 97 06/13/19 15:00 20 165/78 96 06/13/19 13:26 91 H 90 28 H 180/91 97 06/13/19 13:06 97.7 F 84 28 H 200/97 95 - General General Appearance: Alert, Oriented x3, Cooperative, Mild distress Limitations: No limitations - Head Head exam: Normal inspection - Eye Eye exam: Normal appearance, PERRL, EOMI Pupils: Normal accommodation - ENT ENT exam: Normal exam, Mucous membranes moist, Normal external ear exam, Normal orophraynx Ear exam: Normal external inspection, Other (hard of hearing). negative: External canal tenderness Nasal Exam: Normal inspection. negative: Discharge, Sinus tenderness Mouth exam: Normal external inspection, Tongue normal Teeth exam: Normal inspection. negative: Dental caries Throat exam: Normal inspection. negative: Tonsillar erythema, Tonsillar exudate - Neck Neck exam: Normal inspection, Full ROM. negative: Tenderness - Respiratory Respiratory exam: negative: Respiratory distress, Rhonchi, Wheezes - Cardiovascular Cardiovascular Exam: Regular rate, Normal rhythm, Normal heart sounds Peripheral Pulses: 2+: Radial (R), Radial (L), Dorsalis Pedis (R), Dorsalis Pedis (L) - GI/Abdominal GI/Abdominal exam: Soft, Normal bowel sounds. negative: Tenderness - Rectal Rectal exam: Deferred - exam: Deferred - Extremities Extremities exam: Normal inspection, Full ROM, Normal capillary refill, Pedal edema (trace). negative: Tenderness - Back Back exam: Reports: Normal inspection, Full ROM. Denies: Muscle spasm, Rash noted, Tenderness - Neurological Neurological exam: Alert, CN II-XII intact, Normal gait, Oriented X3 - Psychiatric Psychiatric exam: Normal affect, Normal mood - Skin Skin exam: Dry, Intact, Normal color, Warm Results - Labs Result Diagrams: 06/13/19 13:25 06/14/19 06:20 Labs Last 24 Hours: Laboratory Results - last 24 hr 06/13/19 06/13/19 06/13/19 13:25 13:25 13:25 WBC 7.1 RBC 4.02 L Hgb 12.0 L Hct 38.9 L MCV 96.8 MCH 29.8 MCHC 30.8 L RDW 14.6 H Plt Count 329 MPV 10.3 Gran % 67.7 Lymphocytes % 21.0 Monocytes % 8.6 Eosinophils % 2.1 Basophils % 0.6 Absolute Neutrophils 4.79 Sodium 138 Potassium 5.4 H Chloride 103 Carbon Dioxide 21.0 L Anion Gap 14.0 BUN 24 H Creatinine 1.1 Estimated GFR > 60 POC Glucose Random Glucose 162 H Calcium 10.0 Total Bilirubin 0.30 AST 17 ALT 12 Alkaline Phosphatase 71 CK-MB (CK-2) 2.2 Troponin T 0.025 H NT-Pro-B Natriuret Pep 5186.00 H Total Protein 7.5 Albumin 4.3 Globulin 3.2 Albumin/Globulin Ratio 1.3 06/13/19 19:35 WBC RBC Hgb Hct MCV MCH MCHC RDW Plt Count MPV Gran % Lymphocytes % Monocytes % Eosinophils % Basophils % Absolute Neutrophils Sodium Potassium Chloride Carbon Dioxide Anion Gap BUN Creatinine Estimated GFR POC Glucose 257 H Random Glucose Calcium Total Bilirubin AST ALT Alkaline Phosphatase CK-MB (CK-2) Troponin T NT-Pro-B Natriuret Pep Total Protein Albumin Globulin Albumin/Globulin Ratio VTE H&P Assessment - Risk for VTE Risk for VTE: Yes Risk Level: High Risk Assessment Date: 06/14/19 Risk Assessment Time: 09:22 VTE Orders Placed or Will Be Placed: Yes Plan - Inpatient Certification Inpatient Certification: Admit to inpatient care: Based on my medical assessment, after consideration of patient's risk factors (age, co-morbidities and patient presenting symptoms and acuity), I expect that this patient will remain in the hospital greater than or equal to two midnights and that the services needed warrant inpatient care because: Patient Risk Factors: COPD exacerbation, Heart Failure, I certify that my determination is in accordance with my understanding of Medicare requirements for reasonable and necessary inpatient services. 06/13/19 23:01 - Detailed Diagnosis and Plan (1) Dyspnea Current Visit: Yes Status: Acute Base Code: R06.00 - DYSPNEA, UNSPECIFIED Comment: 06/13/19: - 2/2 to exacerbation of CHF, COPD, left pleural effusion. - Albuterol and Duonebs treatments as ordered. - Titrate oxygen to keep Sao2 > 90% - Elevate head of bed > 30 deg and assist with feeds if needed to prevent aspiration. (2) CHF (congestive heart failure) Current Visit: Yes Status: Acute Qualifiers: Heart failure type: unspecified Heart failure chronicity: acute Qualified Code(s): I50.9 - Heart failure, unspecified Base Code: I50.9 - HEART FAILURE, UNSPECIFIED Comment: 06/13/19: - No recent echo in system. Systolic vs Diastolic. - CXR: Pulmonary edema. - BB, ARB, Lasix 40mg IV. (3) Pleural effusion on left Current Visit: Yes Status: Acute Base Code: J90 - PLEURAL EFFUSION, NOT ELSEWHERE CLASSIFIED Comment: 06/13/19: - Left lung pleural effusion. No infiltrate noted on xray. - Lasix 40mg IV QD. - Keep oxygen sats > 90% - Interval chest xray needed at discharge. (4) COPD exacerbation Current Visit: Yes Status: Acute Base Code: J44.1 - CHRONIC OBSTRUCTIVE PULMONARY DISEASE W (ACUTE) EXACERBATION Comment: 06/13/19: - Likely as a result of pleural effusion, vs aspiration. - CXR: pulmonary congestion and left sided pleural effusion. - Continue with Albuterol Q4H PRN, Duonebs Q6H FERCHO, - Titrate oxygen to maintain sats > 90%. - Check Procalcitonin (5) Diabetes Current Visit: Yes Status: Acute Base Code: E11.9 - TYPE 2 DIABETES MELLITUS WITHOUT COMPLICATIONS Comment: 06/13/19: - Random glucose 257, Goal to keep glucose between 140-180. - Resume home dose of Metformin 1000mg BID, basal insulin Levemir 5 units QHS, correction dose Novolog 10 units TIDAC. - Accuchecks TIDAC - ADA diet ordered (6) Hypertension Current Visit: Yes Status: Acute Base Code: I10 - ESSENTIAL (PRIMARY) HYPERTENSION Comment: 06/13/19: - Resume doses of Amlodipine and Losartan. (7) Hypothyroid Current Visit: Yes Status: Acute Base Code: E03.9 - HYPOTHYROIDISM, UNSPECIFIED Comment: 06/13/19: - Resume home dose of Levothyroxine. (8) Chronic atrial fibrillation Current Visit: Yes Status: Acute Base Code: I48.2 - CHRONIC ATRIAL FIBRILLATION Comment: 06/13/19: - ECG showing sinus rhythm on admission. - Continuous cardiac monitoring showing paroxysmal a fib. No other acute findings. - Resume rate control with Metprolol XL 50mg daily and anticogulation with Xarelto 15mg daily. (9) Hx of coronary artery disease Current Visit: Yes Status: Acute Base Code: Z86.79 - PERSONAL HISTORY OF OTHER DISEASES OF THE CIRCULATORY SYSTEM Comment: 06/13/19: - Hx of CAD s/p stenting - On BB, ARB, no antiplatelet. - Dr. Mckinley is the patient's Academic Affairs Vice President. (10) DVT prophylaxis Current Visit: Yes Status: Acute Base Code: Z29.9 - ENCOUNTER FOR PROPHYLACTIC MEASURES, UNSPECIFIED Comment: 06/13/19: - Anticoagualted on Xarelto 15mg daily. (11) Patient is full code Current Visit: Yes Status: Acute Base Code: Z78.9 - OTHER SPECIFIED HEALTH STATUS Comment: 06/13/19: - Discussed code status with pt and caregiver. The patient wants to be full code.
[2019-06-14] MEDS: CEFTRIAXONE 1GM/50ML BAG 1 GM/50 ML BAG IVPB SCH (06:08)
[2019-06-14] MEDS: LEVOTHYROXINE SODIUM 125 MCG TABLET PO SCH (06:10)
[2019-06-14 06:53] LABS: BLOOD UREA NITROGEN 26 mg/dL (8-23); CREATININE 1.1 mg/dL (0.7-1.2); EST GLOMERULAR FILTRATION RATE > 60 mL/min; GLUCOSE,RANDOM 266 mg/dL (74-109)
[2019-06-14 06:57] LABS: CKMB 1.8 ng/mL (<6.73)
[2019-06-14] MEDS: METFORMIN 500 MG TABLET PO SCH ×2 (08:17→17:17)
[2019-06-14] MEDS: NOVOLOG FLEXPEN (INSULIN ASPART) 100 UNITS/ML SQ SCH ×3 (09:00→17:19)
[2019-06-14] MEDS ORDERED: NETARSUDIL MESYLATE EACH EYE SCH (10:00)
[2019-06-14] MEDS ORDERED: FUROSEMIDE IV 40MG/4ML VIAL IVP SCH (10:00)
[2019-06-14] MEDS: AMLODIPINE BESYLATE 5MG TAB PO SCH (10:04)
[2019-06-14] MEDS: METOPROLOL TART 50 MG TABLET PO SCH (10:05)
[2019-06-14] MEDS: LOSARTAN POTASSIUM 100 MG TABLET PO SCH (10:05)
[2019-06-14] MEDS: SERTRALINE HCL 50 MG TABLET PO SCH (10:06)
--- NOTE | 2019-06-14 10:41 | Physician Progress Note ---
Subjective - Date Date of Physician Progress Note: 06/14/19 - Subjective Subjective Comment: Patient awake, alert but has mild dyspnea after using the restroom. Objective - Vital Signs Vital Signs: Vital Signs - Last 24 Hrs Temp Pulse Pulse Resp BP BP Pulse Ox 06/14/19 09:36 93 L 06/14/19 07:41 99.1 F 80 16 155/67 92 L 06/14/19 06:00 93 L 06/14/19 05:55 98.1 F 82 18 154/75 87 L 06/14/19 02:55 98.0 F 73 18 151/68 92 L 06/13/19 21:00 81 18 06/13/19 20:57 98.5 F 81 18 154/62 93 L 06/13/19 18:30 79 18 126/76 97 06/13/19 18:25 98.4 F 87 16 184/72 94 L 06/13/19 16:21 74 18 97 06/13/19 16:00 75 16 167/77 96 06/13/19 15:30 72 18 165/70 97 06/13/19 15:00 20 165/78 96 06/13/19 13:26 91 H 90 28 H 180/91 97 06/13/19 13:06 97.7 F 84 28 H 200/97 95 - General General Appearance: Alert, Oriented x3, Cooperative, Mild distress Limitations: No limitations - Head Head exam: Normal inspection - Eye Eye exam: Normal appearance, PERRL, EOMI Pupils: Normal accommodation - ENT ENT exam: Normal exam, Mucous membranes moist, Normal external ear exam, Normal orophraynx Ear exam: Normal external inspection, Other (hard of hearing). negative: External canal tenderness Nasal Exam: Normal inspection. negative: Discharge, Sinus tenderness Mouth exam: Normal external inspection, Tongue normal Teeth exam: Normal inspection. negative: Dental caries Throat exam: Normal inspection. negative: Tonsillar erythema, Tonsillar exudate - Neck Neck exam: Normal inspection, Full ROM. negative: Tenderness - Respiratory Respiratory exam: negative: Respiratory distress, Rhonchi, Wheezes - Cardiovascular Cardiovascular Exam: Regular rate, Normal rhythm, Normal heart sounds Peripheral Pulses: 2+: Radial (R), Radial (L), Dorsalis Pedis (R), Dorsalis Pedis (L) - GI/Abdominal GI/Abdominal exam: Soft, Normal bowel sounds. negative: Tenderness - Rectal Rectal exam: Deferred - exam: Deferred - Extremities Extremities exam: Normal inspection, Full ROM, Normal capillary refill, Pedal edema (trace). negative: Tenderness - Back Back exam: Reports: Normal inspection, Full ROM. Denies: Muscle spasm, Rash noted, Tenderness - Neurological Neurological exam: Alert, CN II-XII intact, Normal gait, Oriented X3 - Psychiatric Psychiatric exam: Normal affect, Normal mood - Skin Skin exam: Dry, Intact, Normal color, Warm Assessment and Plan - Assessment and Plan (1) Dyspnea Current Visit: Yes Status: Acute Base Code: R06.00 - DYSPNEA, UNSPECIFIED Comment: 06/14/19: - 2/2 to exacerbation of CHF, COPD, left pleural effusion. - Albuterol and Duonebs treatments as ordered. - Titrate oxygen to keep Sao2 > 90% - Elevate head of bed > 30 deg and assist with feeds if needed to prevent aspiration. (2) CHF (congestive heart failure) Current Visit: Yes Status: Acute Qualifiers: Heart failure type: unspecified Heart failure chronicity: acute Qualified Code(s): I50.9 - Heart failure, unspecified Base Code: I50.9 - HEART FAILURE, UNSPECIFIED Comment: 06/13/19: - No recent echo in system. Systolic vs Diastolic. - CXR: Pulmonary edema. - pro-BNP > 5000 ---> 6000 - BB, ARB, Lasix 40mg IV. (3) Pleural effusion on left Current Visit: Yes Status: Acute Base Code: J90 - PLEURAL EFFUSION, NOT ELSEWHERE CLASSIFIED Comment: 06/14/19: - Left lung pleural effusion. No infiltrate noted on xray. - Lasix 40mg IV QD. - Keep oxygen sats > 90% - Interval chest xray needed at discharge. (4) COPD exacerbation Current Visit: Yes Status: Acute Base Code: J44.1 - CHRONIC OBSTRUCTIVE PULMONARY DISEASE W (ACUTE) EXACERBATION Comment: 06/14/19: - Likely as a result of pleural effusion, vs aspiration. - CXR: pulmonary congestion and left sided pleural effusion. - Continue with Albuterol Q4H PRN, Duonebs Q6H FERCHO, - Titrate oxygen to maintain sats > 90%. - Check Procalcitonin (5) Elevated troponin Current Visit: Yes Status: Acute Base Code: R74.8 - ABNORMAL LEVELS OF OTHER SERUM ENZYMES Comment: 06/14/19: - 0.02 --> 0.01 - 2/2 chronic a fib, CHF exacerbation. - No evidence of ACS on ECG or monitor. (6) Diabetes Current Visit: Yes Status: Acute Base Code: E11.9 - TYPE 2 DIABETES MELLITUS WITHOUT COMPLICATIONS Comment: 06/14/19: - Random glucose 257, Goal to keep glucose between 140-180. - Resume home dose of Metformin 1000mg BID, basal insulin Levemir 5 units QHS, correction dose Novolog 10 units TIDAC. - Accuchecks TIDAC - ADA diet ordered (7) Hypertension Current Visit: Yes Status: Acute Base Code: I10 - ESSENTIAL (PRIMARY) HYPERTENSION Comment: 06/14/19: - Resume doses of Amlodipine and Losartan. (8) Hypothyroid Current Visit: Yes Status: Acute Base Code: E03.9 - HYPOTHYROIDISM, UNSPECIFIED Comment: 06/14/19: - Resume home dose of Levothyroxine. (9) Chronic atrial fibrillation Current Visit: Yes Status: Acute Base Code: I48.2 - CHRONIC ATRIAL FIBRILLATION Comment: 06/13/19: - ECG showing sinus rhythm on admission. - Continuous cardiac monitoring showing paroxysmal a fib. No other acute findings. - Resume rate control with Metprolol XL 50mg daily and anticogulation with Xarelto 15mg daily. (10) Hx of coronary artery disease Current Visit: Yes Status: Acute Base Code: Z86.79 - PERSONAL HISTORY OF OTHER DISEASES OF THE CIRCULATORY SYSTEM Comment: 06/14/19: - Hx of CAD s/p stenting - On BB, ARB, no antiplatelet. - Dr. Mckinley is the patient's Geophysical Operator. (11) DVT prophylaxis Current Visit: Yes Status: Acute Base Code: Z29.9 - ENCOUNTER FOR PROPHYLACTIC MEASURES, UNSPECIFIED Comment: 06/14/19: - Anticoagualted on Xarelto 15mg daily. (12) Patient is full code Current Visit: Yes Status: Acute Base Code: Z78.9 - OTHER SPECIFIED HEALTH STATUS Comment: 06/14/19: - Discussed code status with pt and caregiver. The patient wants to be full code. Results - Labs Result Diagrams: 06/13/19 13:25 06/14/19 06:20 Labs Last 24 Hours: Laboratory Results - last 24 hr 06/13/19 06/13/19 06/13/19 13:25 13:25 13:25 WBC 7.1 RBC 4.02 L Hgb 12.0 L Hct 38.9 L MCV 96.8 MCH 29.8 MCHC 30.8 L RDW 14.6 H Plt Count 329 MPV 10.3 Gran % 67.7 Lymphocytes % 21.0 Monocytes % 8.6 Eosinophils % 2.1 Basophils % 0.6 Absolute Neutrophils 4.79 Sodium 138 Potassium 5.4 H Chloride 103 Carbon Dioxide 21.0 L Anion Gap 14.0 BUN 24 H Creatinine 1.1 Estimated GFR > 60 POC Glucose Random Glucose 162 H Calcium 10.0 Total Bilirubin 0.30 AST 17 ALT 12 Alkaline Phosphatase 71 CK-MB (CK-2) 2.2 Troponin T 0.025 H NT-Pro-B Natriuret Pep 5186.00 H Total Protein 7.5 Albumin 4.3 Globulin 3.2 Albumin/Globulin Ratio 1.3 Procalcitonin 06/13/19 06/14/19 06/14/19 19:35 06:20 06:20 WBC RBC Hgb Hct MCV MCH MCHC RDW Plt Count MPV Gran % Lymphocytes % Monocytes % Eosinophils % Basophils % Absolute Neutrophils Sodium 141 Potassium 5.0 H Chloride 104 Carbon Dioxide 24.0 Anion Gap 13.0 BUN 26 H Creatinine 1.1 Estimated GFR > 60 POC Glucose 257 H Random Glucose 266 H Calcium 9.5 Total Bilirubin AST ALT Alkaline Phosphatase CK-MB (CK-2) 1.8 Troponin T NT-Pro-B Natriuret Pep 6689.00 H Total Protein Albumin Globulin Albumin/Globulin Ratio Procalcitonin 06/14/19 06/14/19 06:20 06:20 WBC RBC Hgb Hct MCV MCH MCHC RDW Plt Count MPV Gran % Lymphocytes % Monocytes % Eosinophils % Basophils % Absolute Neutrophils Sodium Potassium Chloride Carbon Dioxide Anion Gap BUN Creatinine Estimated GFR POC Glucose Random Glucose Calcium Total Bilirubin AST ALT Alkaline Phosphatase CK-MB (CK-2) Troponin T 0.011 H NT-Pro-B Natriuret Pep Total Protein Albumin Globulin Albumin/Globulin Ratio Procalcitonin 0.033 DVT/PE Assessment - Risk for VTE Risk for VTE: No Risk Level: High Risk Assessment Date: 06/14/19 Risk Assessment Time: 09:22 VTE Orders Placed or Will Be Placed: Yes - Active Medicaitons Current Medications: Current Medications Acetaminophen (Tylenol 500mg Tab) 1,000 mg PO Q6H PRN PRN Reason: PAIN - MILD(1-4)/FEVER Albuterol Sulfate (Albuterol Sulfate) 2.5 mg INH RESP.Q4H.WA PRN PRN Reason: DIFFICULTY IN BREATHING Amlodipine Besylate (Norvasc) 10 mg PO DAILY [facility] Last Admin: 06/14/19 10:04 Dose: 10 mg Documented by: Furosemide (Lasix Iv) 40 mg IVP DAILY [facility] Last Admin: 06/14/19 10:03 Dose: 40 mg Documented by: Insulin Aspart (Novolog Flexpen) 10 unit SQ TIDINS [facility] Last Admin: 06/14/19 09:00 Dose: 10 unit Documented by: Insulin Detemir (Levemir Flextouch) 5 unit SQ QPM [facility] Last Admin: 06/13/19 19:56 Dose: 5 unit Documented by: Levothyroxine Sodium (Synthroid) 125 mcg PO [id number] [facility] Last Admin: 06/14/19 06:10 Dose: 125 mcg Documented by: Losartan Potassium (Losartan Potassium) 100 mg PO DAILY [facility] Last Admin: 06/14/19 10:05 Dose: 100 mg Documented by: Metformin HCl (Glucophage Ir) 1,000 mg PO BIDWM [facility] Last Admin: 06/14/19 08:17 Dose: 1,000 mg Documented by: Metoprolol Tartrate (Lopressor) 50 mg PO DAILY [facility] Last Admin: 06/14/19 10:05 Dose: 50 mg Documented by: Non-Formulary Medication (Brimonidine Tartrate/Timolol [Combigan 0.2%-0.5% Eye Drops]) 1 drop RIGHT EYE QPM [facility] Non-Formulary Medication (Netarsudil Mesylate [Rhopressa]) 1 drop EACH EYE QAM [facility] Rivaroxaban (Xarelto) 15 mg PO QPM [facility] Sertraline HCl (Zoloft) 25 mg PO DAILY [facility] Last Admin: 06/14/19 10:06 Dose: 25 mg Documented by: AMI Plan - Labs Result Diagrams: 06/13/19 13:25 06/14/19 06:20
[2019-06-14] MEDS ORDERED: BRIMONIDINE TARTRATE RIGHT EYE SCH (17:00)
[2019-06-14] MEDS ORDERED: TIMOLOL RIGHT EYE SCH (17:00)
[2019-06-14] MEDS: LEVEMIR FLEXTOUCH 100 UNIT/ML INSULIN PEN SQ SCH (17:17)
[2019-06-14] MEDS: RIVAROXABAN 15 MG TABLET PO SCH (17:17)
[2019-06-14] MEDS: ACETAMINOPHEN 500 MG TABLET PO PRN (18:37)
[2019-06-15] MEDS: ACETAMINOPHEN 500 MG TABLET PO PRN ×2 (02:35→19:24)
[2019-06-15] MEDS: LEVOTHYROXINE SODIUM 125 MCG TABLET PO SCH (06:14)
[2019-06-15 06:39] LABS: BLOOD UREA NITROGEN 27 mg/dL (8-23); CREATININE 1.1 mg/dL (0.7-1.2); EST GLOMERULAR FILTRATION RATE > 60 mL/min; GLUCOSE,RANDOM 156 mg/dL (74-109)
[2019-06-15] MEDS: NOVOLOG FLEXPEN (INSULIN ASPART) 100 UNITS/ML SQ SCH ×3 (07:51→18:43)
[2019-06-15] MEDS: METFORMIN 500 MG TABLET PO SCH ×2 (08:00→17:21)
[2019-06-15] MEDS: SERTRALINE HCL 50 MG TABLET PO SCH (09:14)
[2019-06-15] MEDS: METOPROLOL TART 50 MG TABLET PO SCH (09:15)
[2019-06-15] MEDS: AMLODIPINE BESYLATE 5MG TAB PO SCH (09:15)
[2019-06-15] MEDS: LOSARTAN POTASSIUM 100 MG TABLET PO SCH (09:15)
[2019-06-15] MEDS: FUROSEMIDE 20 MG TABLET PO SCH (09:15)
--- NOTE | 2019-06-15 11:34 | Physician Progress Note ---
Subjective - Date Date of Physician Progress Note: 06/15/19 - Subjective Subjective Comment: Pt sitting up in recliner with legs elevated. A&ox3, able to answer all questions appropriately. Taking AM meds with water, sitting up, no voice changes, coughing, or clearing throat noted. +1 pitting edema noted CHASE, feet pale. . Objective - Vital Signs Vital Signs: Vital Signs - Last 24 Hrs Temp Pulse Resp BP Pulse Ox 06/15/19 09:00 70 17 06/15/19 07:30 98.8 F 70 17 152/68 91 L 06/15/19 06:05 91 L 06/15/19 06:00 98.3 F 71 18 174/77 91 L 06/15/19 02:40 98.2 F 68 16 176/74 98 06/14/19 21:00 72 16 06/14/19 20:35 98.1 F 72 16 152/72 93 L 06/14/19 18:26 95 06/14/19 16:54 98 06/14/19 14:50 81 19 152/69 94 L - General General Appearance: Alert, Oriented x3, Cooperative, No acute distress Limitations: No limitations - Head Head exam: Normal inspection - Eye Eye exam: Normal appearance, PERRL, EOMI Pupils: Normal accommodation - ENT ENT exam: Normal exam, Mucous membranes moist, Normal external ear exam, Normal orophraynx Ear exam: Normal external inspection, Other (hard of hearing). negative: External canal tenderness Nasal Exam: Normal inspection. negative: Discharge, Sinus tenderness Mouth exam: Normal external inspection, Tongue normal Teeth exam: Normal inspection. negative: Dental caries Throat exam: Normal inspection. negative: Tonsillar erythema, Tonsillar exudate - Neck Neck exam: Normal inspection, Full ROM. negative: Tenderness - Respiratory Respiratory exam: negative: Respiratory distress, Rhonchi, Wheezes - Cardiovascular Cardiovascular Exam: Regular rate, Normal rhythm, Normal heart sounds Peripheral Pulses: 2+: Radial (R), Radial (L), Dorsalis Pedis (R), Dorsalis Pedis (L) - GI/Abdominal GI/Abdominal exam: Soft, Normal bowel sounds. negative: Tenderness - Rectal Rectal exam: Deferred - exam: Deferred - Extremities Extremities exam: Normal inspection, Full ROM, Normal capillary refill, Pedal edema (+1). negative: Tenderness - Back Back exam: Reports: Normal inspection, Full ROM. Denies: Muscle spasm, Rash noted, Tenderness - Neurological Neurological exam: Alert, CN II-XII intact, Normal gait, Oriented X3 - Psychiatric Psychiatric exam: Normal affect, Normal mood - Skin Skin exam: Dry, Intact, Normal color, Warm Assessment and Plan - Assessment and Plan (1) Dyspnea Current Visit: Yes Status: Acute Base Code: R06.00 - DYSPNEA, UNSPECIFIED Comment: 06/15/19 -decreased symptoms since starting Lasix but still requiring supplemental O2 for recovery from limited mobility -Home O2 qualifier completed and qualifies for 2L cont home O2 (direct care staffer to facilitate in the Am before d/c), PT/OT in the AM for possible d/c -HOB>30 and assist with meals, come health aid reports pt has swallow testing ea aayush 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 they assist with sitting him up to drink, do not talk when eating/drinking, and eat small bites -Duoneb QID and alb PRN 06/14/19: - 2/2 to exacerbation of CHF, COPD, left pleural effusion. - Albuterol and Duonebs treatments as ordered. - Titrate oxygen to keep Sao2 > 90% - Elevate head of bed > 30 deg and assist with feeds if needed to prevent aspiration. (2) CHF (congestive heart failure) Current Visit: Yes Status: Acute Qualifiers: Heart failure type: unspecified Heart failure chronicity: acute Qualified Code(s): I50.9 - Heart failure, unspecified Base Code: I50.9 - HEART FAILURE, UNSPECIFIED Comment: 06/15/19 -family day care worker at bedside reports previous week, pt has been eating out daily, adding table salt to food r/t family member in town visiting. she reports pt has been instructed to decrease salt intake but has refused dietary restrictions -cont BB, ARB, lasix 20mg PO -repeat labs in the AM 06/13/19: - No recent echo in system. Systolic vs Diastolic. - CXR: Pulmonary edema. - pro-BNP > 5000 ---> 6000 - BB, ARB, Lasix 40mg IV. (3) Pleural effusion on left Current Visit: Yes Status: Acute Base Code: J90 - PLEURAL EFFUSION, NOT EL SEWHERE CLASSIFIED Comment: 06/15/19 -repeat CXR today ordered, pending completion -transitioned to PO lasix 20mg 06/14/19: - Left lung pleural effusion. No infiltrate noted on xray. - Lasix 40mg IV QD. - Keep oxygen sats > 90% - Interval chest xray needed at discharge. 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 - CXR: pulmonary congestion and left sided pleural effusion. - Continue with Albuterol Q4H PRN, Duonebs Q6H FERCHO, - Titrate oxygen to maintain sats > 90%. - Check Procalcitonin (5) Chronic atrial fibrillation Current Visit: Yes Status: Acute Base Code: I48.2 - CHRONIC ATRIAL FIBRILLA TION Comment: 06/15/19 -cont cardiac monitoring, paroxysmal afib noted - labs in the AM including mag -continue metoprolol XL 50mg daily, Xarelto 15mg daily - 06/13/19: - ECG showing sinus rhythm on admission. - Continuous cardiac monitoring showing paroxysmal a fib. No other acute findings. - Resume rate control with Metprolol XL 50mg daily and anticogulation with Xarelto 15mg daily. (6) Diabetes Current Visit: Yes Status: Acute Base Code: E11.9 - TYPE 2 DIABETES MELLITUS WITHOUT COMPLICATIONS Comment: 06/15/19 -Glucose 156 this AM, continue to maintain 140-180 with current meds, correction dosing as needed -cont ADA diet but staff has noticed outside food, salt additions and fluids from visitors 06/14/19: - Random glucose 257, Goal to keep glucose between 140-180. - Resume home dose of Metformin 1000mg BID, basal insulin Levemir 5 units QHS, correction dose Novolog 10 units TIDAC. - Accuchecks TIDAC - ADA diet ordered (7) Elevated troponin Current Visit: Yes Status: Acute Base Code: R74.8 - ABNORMAL LEVELS OF OTHER SERUM ENZYMES Comment: 06/15/19: - 0.02 --> 0.01 - 2/2 chronic a fib, CHF exacerbation. - No evidence of ACS on ECG or monitor. (8) Hx of coronary artery disease Current Visit: Yes Status: Acute Base Code: Z86.79 - PERSONAL HISTORY OF OTHER DISEASES OF THE CIRCULATORY SYSTEM Comment: 06/15/19: - Hx of CAD s/p stenting - On BB, ARB, no antiplatelet. - Dr. Mckinley is the patient's Toll Bridge Operator. (9) Hypothyroid Current Visit: Yes Status: Acute Base Code: E03.9 - HYPOTHYROIDISM, UNSPECIFIED Comment: 06/14/19: - Resume home dose of Levothyroxine. (10) Patient is full code Current Visit: Yes Status: Acute Base Code: Z78.9 - OTHER SPECIFIED HEALTH STATUS Comment: 06/15/19 -continue full code status 06/14/19: - Discussed code status with pt and caregiver. The patient wants to be full code. (11) DVT prophylaxis Current Visit: Yes Status: Acute Base Code: Z29.9 - ENCOUNTER FOR PROPHYLACTIC MEASURES, UNSPECIFIED Comment: 06/15/19: - Anticoagualted on Xarelto 15mg daily. Results - Labs Result Diagrams: 06/13/19 13:25 06/15/19 06:15 Labs Last 24 Hours: Laboratory Results - last 24 hr 06/14/19 06/14/19 06/14/19 11:51 16:36 21:14 Sodium Potassium Chloride Carbon Dioxide Anion Gap BUN Creatinine Estimated GFR POC Glucose 240 H 200 H 79 Random Glucose Calcium 06/14/19 06/15/19 22:15 06:15 Sodium 139 Potassium 4.9 H Chloride 102 Carbon Dioxide 25.0 Anion Gap 12.0 BUN 27 H Creatinine 1.1 Estimated GFR > 60 POC Glucose 150 H Random Glucose 156 H Calcium 9.5 DVT/PE Assessment - Risk for VTE Risk for VTE: No Risk Level: High Risk Assessment Date: 06/14/19 Risk Assessment Time: 09:22 VTE Orders Placed or Will Be Placed: Yes - Active Medicaitons Current Medications: Current Medications Acetaminophen (Tylenol 500mg Tab) 1,000 mg PO Q6H PRN PRN Reason: PAIN - MILD(1-4)/FEVER Last Admin: 06/15/19 02:35 Dose: 1,000 mg Documented by: Albuterol Sulfate (Albuterol Sulfate) 2.5 mg INH RESP.Q4H.WA PRN PRN Reason: DIFFICULTY IN BREATHING Amlodipine Besylate (Norvasc) 10 mg PO DAILY [facility] Last Admin: 06/15/19 09:15 Dose: 10 mg Documented by: Furosemide (Lasix) 20 mg PO DAILY [facility] Last Admin: 06/15/19 09:15 Dose: 20 mg Documented by: Insulin Aspart (Novolog Flexpen) 10 unit SQ TIDINS [facility] Last Admin: 06/15/19 07:51 Dose: Not Given Documented by: Insulin Detemir (Levemir Flextouch) 5 unit SQ QPM [facility] Last Admin: 06/14/19 17:17 Dose: 5 unit Documented by: Levothyroxine Sodium (Synthroid) 125 mcg PO [id number] [facility] Last Admin: 06/15/19 06:14 Dose: 125 mcg Documented by: Losartan Potassium (Losartan Potassium) 100 mg PO DAILY [facility] Last Admin: 06/15/19 09:15 Dose: 100 mg Documented by: Metformin HCl (Glucophage Ir) 1,000 mg PO BIDWM [facility] Last Admin: 06/15/19 08:00 Dose: 1,000 mg Documented by: Metoprolol Tartrate (Lopressor) 50 mg PO DAILY [facility] Last Admin: 06/15/19 09:15 Dose: 50 mg Documented by: Non-Formulary Medication (Brimonidine Tartrate/Timolol [Combigan 0.2%-0.5% Eye Drops]) 1 drop RIGHT EYE QPM [facility] Non-Formulary Medication (Netarsudil Mesylate [Rhopressa]) 1 drop EACH EYE QAM [facility] Rivaroxaban (Xarelto) 15 mg PO QPM [facility] Last Admin: 06/14/19 17:17 Dose: 15 mg Documented by: Sertraline HCl (Zoloft) 25 mg PO DAILY [facility] Last Admin: 06/15/19 09:14 Dose: 25 mg Documented by: AMI Plan - Labs Result Diagrams: 06/13/19 13:25 06/15/19 06:15
[2019-06-15] MEDS: RIVAROXABAN 15 MG TABLET PO SCH (17:21)
[2019-06-15] MEDS: LEVEMIR FLEXTOUCH 100 UNIT/ML INSULIN PEN SQ SCH (20:09)
--- NOTE | 2019-06-16 05:32 | RADIOLOGY REPORT ---
EXAM: CHEST, TWO VIEWS HISTORY: PLEURAL EFFUSION. TECHNIQUE: Two views of the chest were obtained. Comparison: 06/13/19. FINDINGS: Left pleural effusion appears unchanged. There appears to be underlying chronic interstitial findings as well. There are no new opacities. The cardiac silhouette is obscured by the effusion. No obvious change of the mediastinum. Arthritic changes of the right shoulder. IMPRESSION: NO CHANGE IN LEFT PLEURAL EFFUSION. NO SIGN OF NEW CHEST PATHOLOGY. JOB NUMBER: [id number] [facility]
[2019-06-16] MEDS: LEVOTHYROXINE SODIUM 125 MCG TABLET PO SCH (06:06)
[2019-06-16 06:36] LABS: ABSOLUTE NEUTROPHIL COUNT 5.97; BASO % 0.5 % (0-6); EOS % 2.2 % (0-6); GRAN % 71.7 % (47-80); HEMOGLOBIN 10.9 gm/dl (14.0-18.0); LYMPH % 17.7 % (16-45); MEAN CELL VOLUME 97.8 fl (81-97); MEAN CORPUSCULAR HEMOGLOBIN 29.6 pg (27-33); MEAN CORPUSCULAR HGB CONC 30.3 g/dl (32-36); MEAN PLATELET VOLUME 9.4 fl (7.4-10.4); MONO % 7.9 % (0-9); PLATELET COUNT 320 K/uL (130-400); RED BLOOD COUNT 3.68 M/uL (4.40-5.70); RED CELL DISTRIBUTION WIDTH 14.8 % (11.5-14.5); WHITE BLOOD COUNT W/O DIFF 8.3 K/uL (4.2-12.2)
[2019-06-16 06:50] LABS: BLOOD UREA NITROGEN 29 mg/dL (8-23); EST GLOMERULAR FILTRATION RATE > 60 mL/min; GLUCOSE,RANDOM 155 mg/dL (74-109)
[2019-06-16] MEDS: NOVOLOG FLEXPEN (INSULIN ASPART) 100 UNITS/ML SQ SCH (08:21)
[2019-06-16] MEDS: METFORMIN 500 MG TABLET PO SCH (08:34)
[2019-06-16] MEDS: LOSARTAN POTASSIUM 100 MG TABLET PO SCH ×2 (08:35→10:54)
[2019-06-16] MEDS: SERTRALINE HCL 50 MG TABLET PO SCH ×2 (08:35→10:56)
[2019-06-16] MEDS: METOPROLOL TART 50 MG TABLET PO SCH (08:35)
[2019-06-16] MEDS: AMLODIPINE BESYLATE 5MG TAB PO SCH ×2 (08:35→10:54)
[2019-06-16] MEDS: FUROSEMIDE 20 MG TABLET PO SCH ×2 (08:38→10:54)
--- NOTE | 2019-06-16 08:58 | RADIOLOGY REPORT ---
EXAM: CHEST, SINGLE VIEW HISTORY: SHORT OF BREATH WITH BILATERAL LOWER EXTREMITY EDEMA. TECHNIQUE: Portable AP sitting upright view of the chest was obtained. Comparison: 03/22/19. FINDINGS: The cardiac silhouette appears to be of normal size. There is a left pleural effusion obscuring the costophrenic angle and left lung base. There is some mild central vascular congestion present in both lung bases. No pneumothorax. The skeletal structures show chronic arthritic changes especially in the right shoulder, but there is no suspicious finding. IMPRESSION: PULMONARY EDEMA AND LEFT PLEURAL EFFUSION. JOB NUMBER: [id number] [facility]
--- NOTE | 2019-06-16 09:37 | Rehab Evaluation ---
Patient Information - Patient Information Diagnosis: COPD exacerabation, HTN, A-fib. Ordered Treatment: PT Evaluate and Treat Status: Initial Evaluation History: Detail (The patient presented in ED on 06/13/19 and was admitted to the inpatient floor with increasing dyspnea.The patient is referred to PT/OT for ongoing therapy needs.) Past Medical/Surgical Hx: PAST MEDICAL/SURGICAL HISTORY Past Surgical History 1994 quad bypass, nasal surgery, prostate x3, 9 coronary and leg stents, laminectomy PMH - Respiratory Hx Respiratory Disorders Yes Hx Bronchitis Yes Hx Chronic Obstructive Yes Pulmonary Disease (COPD) Hx Dyspnea Yes PMH - Cardiovascular Hx Cardiovascular Disorders Yes Hx Abnormal EKG Yes Hx Cardiac Catheterization Yes Hx Chest Pain No Hx Edema Yes Hx Hypertension Yes Hx Irregular Heartbeat Yes PMH - Neuro Hx Neurological Disorders Yes Hx Headaches Yes: frequent PMH - GI Hx Gastrointestinal Disorders No PMH - Hx Genitourinary Disorders Yes Hx Prostate Problems Yes: prostate surgery PMH - Endocrine Hx Endocrine Disorders Yes Hx Diabetes Yes Hx Thyroid Disease Yes PMH - Musculoskeletal Hx Musculoskeletal Disorders Yes Comment: lumbar laminectomy PMH - Psych Hx Psychiatric Problems No PMH - Hematology/Oncology Hx Hematology/Oncology No Disorders Premorbid Status: Detail (Prior to admission the patient was ambulatory with a 4 wheeled walker. The pt. has Home Health Aides and his daughter who stay with him up until midnight. The patient has assistance with all foreman/pile driving and erection and ADL's including dressing and bathing.) Social History: Detail (The patient lives alone with(Home Health aides or daughter present until midnight) in a 3 story house with 4 stairs at one enterance and 3 stairs at another with one reachable handrail at both enterances. The patient's bedroom and bathroom are on the second floor with a flight of stairs and one handrail in between floors. The bathroom is equipped with: a tub/shower combination, shower seat, handheld shower head, and elevated toilet seat. Grab bars are present in the tub and by the toilet. The patient has a 4 wheeled walker and a cane but uses the walker. The patient will be on home O2 upon discharge from [facility]. The patient has an emergency call system.) Precautions: [place], Fall - Time With Patient Total Time Spent With Patient (Min): 30 Treatment Procedures: Detail (Initial Evaluation, low complexity. Home Health A kj was present during Evaluation.) Subjective Information - Subjective Information Per Patient (The patient had no complaints of pain.) Objective Data - Mental Status Patient Orientation: Oriented x3 (The patient knew his birthdate, age, place, current month and year.) - Visual Perception Other - ROM Within normal limits (The patient's LE AROM was WNL with bilateral tightness noted in ankle dorsiflexion musculature.) - Strength/Tone Within normal limits (The patient's LE strength was generally 4+ to 5/5 except for bilateral hip flexors 4/5, L knee extensors 4/5, bilateral knee flexors 4/5 and bilateral dorsiflexors 4/5.) - Coordination Other (Not tested.) - Transfers Independent (The patient was independent with sit to and from stand transfers. Home Health Aide cued patient to push up and reach up from surface so PT was unable to fully assess patient's independence with transfers without cueing.) - Balance Balance Sitting: Good Balance Standing: Fair (The patient scored 14/28 on the Tinetti Assessment Tool which is a high risk for falling category. The patient was able to stand without support with walker however exhibited decreased balance reactions with perturbations. The patient was able to grab the walker with LOB.) - Gait Detail (The patient ambulated a distance of 90 feet with front wheeled walker and 2 L of O2 with supervision for safety. No shortness of breath was noted with ambulation. The patient's gait pattern was charecterized by decreased bilateral stride length, bilateral decreased heel to toe weight shift and mild bilateral LE ataxic movements.) Therapy Assessment - Therapy Assessment Detail (The patient exhibited decreased LE strength in some muscle groups, decreased balance in standing as measured by the Tinetti Assessment Tool and minimal ataxic gait pattern. Feel the patient would benefit from and initial Home PT Eval for safety in Home environment however patient declined ongoing Home PT. The patient was discharged from Home Therapies the beginning of last month and is continuing ongoing exercises and ambulation with Home Health Aides. The Home Health Aide has also begun pursed and deep breathing exercises with patient. PT reviewed with patient and Home Health Aide fall prevention techniques including watching out for the new fall risk on the O2 cord and the importance of continuing both UE and LE strengthening exercises and balance exercises.) Problem List - Problem List Physical Therapy Problem List: Detail (1) High fall risk 2) LE weakness in some muscle groups) Goals - Goals Physical Therapy Goals: The patient declined ongoing PT. The patient is to continue with his HEP issued by previous Home PT and to continue ambulation with Home Health Aides assistance. Plan - Plan Physical Therapy Plan: Patient discharging from [facility] today. Patient is to continue with previous HEP.
--- NOTE | 2019-06-16 09:47 | Rehab Evaluation ---
Patient Information - Patient Information Diagnosis: CHF, pulmonary edema, hyperkalemia Ordered Treatment: OT Evaluate and Treat Status: Initial Evaluation Surgery: No Past Medical/Surgical Hx: PAST MEDICAL/SURGICAL HISTORY Past Surgical History 1993 quad bypass, nasal surgery, prostate x3, 9 coronary and leg stents, laminectomy PMH - Respiratory Hx Respiratory Disorders Yes Hx Bronchitis Yes Hx Chronic Obstructive Yes Pulmonary Disease (COPD) Hx Dyspnea Yes PMH - Cardiovascular Hx Cardiovascular Disorders Yes Hx Abnormal EKG Yes Hx Cardiac Catheterization Yes Hx Chest Pain No Hx Edema Yes Hx Hypertension Yes Hx Irregular Heartbeat Yes PMH - Neuro Hx Neurological Disorders Yes Hx Headaches Yes: frequent PMH - GI Hx Gastrointestinal Disorders No PMH - Hx Genitourinary Disorders Yes Hx Prostate Problems Yes: prostate surgery PMH - Endocrine Hx Endocrine Disorders Yes Hx Diabetes Yes Hx Thyroid Disease Yes PMH - Musculoskeletal Hx Musculoskeletal Disorders Yes Comment: lumbar laminectomy PMH - Psych Hx Psychiatric Problems No PMH - Hematology/Oncology Hx Hematology/Oncology No Disorders Premorbid Status: Detail (Pt lives alone in a 3 story house, his bedroom and bathroom are on the 2nd floor and his living space is on the 1st floor. He has 4 steps with juve railings at the entrance which are far apart. He has home health aides around the clock except for in the middle of the night. He has a stair lift to get to the second floor. He has a tub/shower combination with seat, hand held shower and grab bars as well as an elevated toilet with grab bars. His home health aid assists with all self cares and IADL tasks. He ambulates with a 4 wheeled walker and has a life alert.) Social History: Detail (Pt has a supportive home health aid who was present during evaluation.) Precautions: [place], Fall - Time With Patient Total Time Spent With Patient (Min): 30 Treatment Procedures: Detail (OT eval low complexity) Subjective Information - Subjective Information Per Patient, Other (per home health aid) Objective Data - Pain Pain Present: No - Mental Status Patient Orientation: Oriented x3 - Visual Perception Appears within normal limits for therapeutic activities (Pt wears glasses) - ROM Not within normal limits (Juve UE AROM WNL with exception of right shoulder flexion which was limited to approx. 100 degrees.) - Strength/Tone Within normal limits (Juve UE strength grossly 4 to 4+/5 throughout, mild weakness noted in right shoulder flexion.) - Coordination Appears within normal limits for therapeutic activities - Transfers Independent (Ind with sit to stand from recliner) - Balance Balance Sitting: Good Balance Standing: Fair - Sensation Intact - Gait Detail (Pt ambulating short distances with 2 wheeled walker using 2 liters of oxygen) - ADL's/IADL's Detail (Pt reports he always has help with self cares and home health aid assisted with donning his pants during evaluation. Pt has no concerns with ADLs/IADLs.) Therapy Assessment - Therapy Assessment Detail (Pt is functional with overall strength and endurance and he has a good support system set up to assist with ADLs/IADLs.) Problem List - Problem List Occupational Therapy Problem List: Detail (No current IP OT problems identified.) Goals - Goals Occupational Therapy Goals: No current IP OT goals identified. Prognosis - Prognosis Good Plan - Plan Occupational Therapy Plan: No further IP OT recommended. Pt and home health aid are not interested in pursuing home OT at this time. Thank you for this referral.
--- NOTE | 2019-06-16 09:50 | Discharge Summary ---
Providers Discharge Summary Date: 06/16/19 Date of admission: 06/13/19 18:24 Expected Date of Discharge: 06/16/19 Attending physician: MARIA INES FELIX Primary care physician: Mark Julian Physical Exam - Vital Signs Vital Signs: Vital Signs - Last 24 Hrs Temp Pulse Resp BP Pulse Ox 06/16/19 09:00 81 17 06/16/19 08:00 98.9 F 72 17 162/72 96 06/16/19 01:21 97.6 F 70 20 170/78 94 L 06/15/19 21:00 65 18 06/15/19 19:28 97.7 F 65 18 170/71 97 06/15/19 12:00 97.4 F L 67 16 133/63 95 - General General Appearance: Alert, Oriented x3, Cooperative, No acute distress Limitations: No limitations - Head Head exam: Normal inspection - Eye Eye exam: Normal appearance, PERRL, EOMI Pupils: Normal accommodation - ENT ENT exam: Normal exam, Mucous membranes moist, Normal external ear exam, Normal orophraynx Ear exam: Normal external inspection, Other (hard of hearing). negative: External canal tenderness Nasal Exam: Normal inspection. negative: Discharge, Sinus tenderness Mouth exam: Normal external inspection, Tongue normal Teeth exam: Normal inspection. negative: Dental caries Throat exam: Normal inspection. negative: Tonsillar erythema, Tonsillar exudate - Neck Neck exam: Normal inspection, Full ROM. negative: Tenderness - Respiratory Respiratory exam: negative: Respiratory distress, Rhonchi, Wheezes - Cardiovascular Cardiovascular Exam: Regular rate, Normal rhythm, Normal heart sounds Peripheral Pulses: 2+: Radial (R), Radial (L), Dorsalis Pedis (R), Dorsalis Pedis (L) - GI/Abdominal GI/Abdominal exam: Soft, Normal bowel sounds. negative: Tenderness - Rectal Rectal exam: Deferred - exam: Deferred - Extremities Extremities exam: Normal inspection, Full ROM, Normal capillary refill, Pedal edema (+1). negative: Tenderness - Back Back exam: Reports: Normal inspection, Full ROM. Denies: Muscle spasm, Rash noted, Tenderness - Neurological Neurological exam: Alert, CN II-XII intact, Normal gait, Oriented X3 - Psychiatric Psychiatric exam: Normal affect, Normal mood - Skin Skin exam: Dry, Intact, Normal color, Warm Hospitalization - Hospitalization Admission Diagnosis: chf, pulmonary edema, hyperkalemia - Problem List/Discharge Diagnosis (1) Dyspnea Current Visit: Yes Status: Acute Base Code: R06.00 - DYSPNEA, UNSPECIFIED Comment: 06/16/19 -PT/OT has cleared pt for d/c, home O2 has been ordered and to be delivered here before D/C -pt is able to ambulate to and from the restroom, using O2 for recovery -[employer] to schedule pt for PCP f/u -continue breathing tx QID and PRN 06/15/19 -decreased symptoms since starting Lasix but still requiring supplemental O2 for recovery from limited mobility -Home O2 qualifier completed and qualifies for 2L cont home O2 (acute care occupational therapist to facilitate in the Am before d/c), PT/OT in the AM for possible d/c -HOB>30 and assist with meals, come health aid reports pt has swallow testing earlier 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 they assist with sitting him up to drink, do not talk when eating/drinking, and eat small bites -Duoneb QID and alb PRN 06/14/19: - 2/2 to exacerbation of CHF, COPD, left pleural effusion. - Albuterol and Duonebs treatments as ordered. - Titrate oxygen to keep Sao2 > 90% - Elevate head of bed > 30 deg and assist with feeds if needed to prevent aspiration. (2) CHF (congestive heart failure) Current Visit: Yes Status: Acute Discharge Diagnosis: Heart failure type: unspecified Heart failure chronicity: acute Qualified Code(s): I50.9 - Heart failure, unspecified Base Code: I50.9 - HEART FAILURE, UNSPECIFIED Comment: 06/16/19 -continue lasix 20mg QD at home -PCP to f/u with continue monitoring of symptoms -pt encouraged to maintain a low salt diet, fluid restriction of 2L daily and report any wgt gain to PCP -Continue BB, ARB, Lasix 06/15/19 -sub acute care nurse at bedside reports previous week, pt has been eating out daily, adding table salt to food r/t family member in town visiting. she reports pt has been instructed to decrease salt intake but has refused dietary restrictions -cont BB, ARB, lasix 20mg PO -repeat labs in the AM 06/13/19: - No recent echo in system. Systolic vs Diastolic. - CXR: Pulmonary edema. - pro-BNP > 5000 ---> 6000 - BB, ARB, Lasix 40mg IV. (3) Pleural effusion on left Current Visit: Yes Status: Acute Base Code: J90 - PLEURAL EFFUSION, NOT ELSEWHERE CLASSIFIED Comment: 06/15/19 -repeat CXR today ordered, pending completion -transitioned to PO lasix 20mg 06/14/19: - Left lung pleural effusion. No infiltrate noted on xray. - Lasix 40mg IV QD. - Keep oxygen sats > 90% - Interval chest xray needed at discharge. (4) COPD exacerbation Current Visit: Yes Status: Acute Base Code: J44.1 - CHRONIC OBSTRUCTIVE PULMONARY DISEASE W (ACUTE) EXACERBATION Comment: 06/15/19 -CXR repeat today -pt home service technician remains at bedside, reports that pt has less JASSO when transfering to bathroom but had to use O2 for some recovery -RT to perform home O2 qualifier -cont neb tx, maintain O2 >90% with controlled JASSO -procalcitonin 0.033, no ABX use indicated 06/14/19: - Likely as a result of pleural effusion, vs aspiration. - CXR: pulmonary congestion and left sided pleural effusion. - Continue with Albuterol Q4H PRN, Duonebs Q6H FERCHO, - Titrate oxygen to maintain sats > 90%. - Check Procalcitonin (5) Chronic atrial fibrillation Current Visit: Yes Status: Acute Base Code: I48.2 - CHRONIC ATRIAL FIBRILLATION Comment: 06/15/19 -cont cardiac monitoring, paroxysmal afib noted - labs in the AM including mag -continue metoprolol XL 50mg daily, Xarelto 15mg daily - 06/13/19: - ECG showing sinus rhythm on admission. - Continuous cardiac monitoring showing paroxysmal a fib. No other acute findings. - Resume rate control with Metprolol XL 50mg daily and anticogulation with Xarelto 15mg daily. (6) Diabetes Current Visit: Yes Status: Acute Base Code: E11.9 - TYPE 2 DIABETES MELLITUS WITHOUT COMPLICATIONS Comment: 06/16/19 -Glucose 155 on AM labs -continue current medications 06/15/19 -Glucose 156 this AM, continue to maintain 140-180 with current meds, correction dosing as needed -cont ADA diet but staff has noticed outside food, salt additions and fluids from visitors 06/14/19: - Random glucose 257, Goal to keep glucose between 140-180. - Resume home dose of Metformin 1000mg BID, basal insulin Levemir 5 units QHS, correction dose Novolog 10 units TIDAC. - Accuchecks TIDAC - ADA diet ordered (7) Elevated troponin Current Visit: Yes Status: Acute Base Code: R74.8 - ABNORMAL LEVELS OF OTHER SERUM ENZYMES Comment: 06/16/19: - 0.02 --> 0.01 - 2/2 chronic a fib, CHF exacerbation. - No evidence of ACS on ECG or monitor. (8) Hx of coronary artery disease Current Visit: Yes Status: Acute Base Code: Z86.79 - PERSONAL HISTORY OF OTHER DISEASES OF THE CIRCULATORY SYSTEM Comment: 06/16/19: - Hx of CAD s/p stenting - On BB, ARB, no antiplatelet. - Dr. Mckinley is the patient's Stage Producer. (9) Hypothyroid Current Visit: Yes Status: Acute Base Code: E03.9 - HYPOTHYROIDISM, UNSPECIFIED Comment: 06/16/19 -TSH 2, no dose changes -continue current meds 06/14/19: - Resume home dose of Levothyroxine. (10) Patient is full code Current Visit: Yes Status: Acute Base Code: Z78.9 - OTHER SPECIFIED HEALTH STATUS Comment: 06/16/19 -continue full code status 06/14/19: - Discussed code status with pt and caregiver. The patient wants to be full code. (11) DVT prophylaxis Current Visit: Yes Status: Acute Base Code: Z29.9 - ENCOUNTER FOR PROPHYLACTIC MEASURES, UNSPECIFIED Comment: 06/16/19: - Anticoagualted on Xarelto 15mg daily. - Hospitalization Course Disposition: Home Health Service Hospital Course: Mr. Grande is a 84 y/o male with history of CHF, COPD, Hypertension and Paroxysmal atrial fibrillation with increasing dyspnea over the past 1 week. The patient says that he began to have some mild leg swelling and then had shortness of breath when he walked. his caregiver who is with him notes that he can't sleep flat and that he has been getting progressively short of breath despite taking his medications as prescribed. She initially thought he may have aspirated food and so she decided to bring him into hospital. ED course: - On arrival to the ED the patient was noted to mildly dyspneic but was able to maintain oxygen saturations. His chest xray was suggestive of pulmonary edema and a pleural effusion of the left lung. The patient was put on 3 liters nasal cannula oxygen and diuretics administered imporving his symptoms. The patient also had a BNP of >5000 and Troponin elevation 0.025. The patient is admitted for exacerbation of congestive heart failure and COPD. PCP: Dr. Mark Julian Procedures: Imaging and X-Rays 06/13/19 13:51 CHEST 1 VIEW [RAD] Stat 06/15/19 11:05 CHEST 2 VIEWS [RAD] Stat Cardiology Procedures 06/13/19 13:08 EKG NOW 06/13/19 18:25 Emergency Technician .Continuous EKG QDX2@0600 Abnormal Labs: Abnormal Lab Results 06/13/19 06/13/19 06/13/19 Range/Units 13:25 13:25 19:35 RBC 4.02 L (4.40-5.70) M/uL Hgb 12.0 L (14.0-18.0) gm/dl Hct 38.9 L (42.0-52.0) % MCV (81-97) fl MCHC 30.8 L (32-36) g/dl RDW 14.6 H (11.5-14.5) % Potassium 5.4 H (3.4-4.5) mmol/L Carbon Dioxide 21.0 L (22-29) mmol/L BUN 24 H (8-23) mg/dL POC Glucose 257 H (70-110) mg/dL Random Glucose 162 H (74-109) mg/dL Troponin T 0.025 H (0-0.010) ng/mL NT-Pro-B Natriuret Pep 5186.00 H (<450) pg/mL 06/14/19 06/14/19 06/14/19 Range/Units 06:20 06:20 06:20 RBC (4.40-5.70) M/uL Hgb (14.0-18.0) gm/dl Hct (42.0-52.0) % MCV (81-97) fl MCHC (32-36) g/dl RDW (11.5-14.5) % Potassium 5.0 H (3.4-4.5) mmol/L Carbon Dioxide (22-29) mmol/L BUN 26 H (8-23) mg/dL POC Glucose (70-110) mg/dL Random Glucose 266 H (74-109) mg/dL Troponin T 0.011 H (0-0.010) ng/mL NT-Pro-B Natriuret Pep 6689.00 H (<450) pg/mL 06/14/19 06/14/19 06/14/19 Range/Units 11:51 16:36 22:15 RBC (4.40-5.70) M/uL Hgb (14.0-18.0) gm/dl Hct (42.0-52.0) % MCV (81-97) fl MCHC (32-36) g/dl RDW (11.5-14.5) % Potassium (3.4-4.5) mmol/L Carbon Dioxide (22-29) mmol/L BUN (8-23) mg/dL POC Glucose 240 H 200 H 150 H (70-110) mg/dL Random Glucose (74-109) mg/dL Troponin T (0-0.010) ng/mL NT-Pro-B Natriuret Pep (<450) pg/mL 06/15/19 06/15/19 06/15/19 Range/Units 06:15 12:06 17:22 RBC (4.40-5.70) M/uL Hgb (14.0-18.0) gm/dl Hct (42.0-52.0) % MCV (81-97) fl MCHC (32-36) g/dl RDW (11.5-14.5) % Potassium 4.9 H (3.4-4.5) mmol/L Carbon Dioxide (22-29) mmol/L BUN 27 H (8-23) mg/dL POC Glucose 156 H 192 H (70-110) mg/dL Random Glucose 156 H (74-109) mg/dL Troponin T (0-0.010) ng/mL NT-Pro-B Natriuret Pep (<450) pg/mL 06/15/19 06/16/19 06/16/19 Range/Units 20:00 06:25 06:25 RBC 3.68 L (4.40-5.70) M/uL Hgb 10.9 L (14.0-18.0) gm/dl Hct 36.0 L (42.0-52.0) % MCV 97.8 H (81-97) fl MCHC 30.3 L (32-36) g/dl RDW 14.8 H (11.5-14.5) % Potassium 4.9 H (3.4-4.5) mmol/L Carbon Dioxide (22-29) mmol/L BUN 29 H (8-23) mg/dL POC Glucose 230 H (70-110) mg/dL Random Glucose 155 H (74-109) mg/dL Troponin T (0-0.010) ng/mL NT-Pro-B Natriuret Pep 5251.00 H (<450) pg/mL Condition at Discharge: (2) Stable Discharge Medications - Discharge Medications Prescriptions: Albuterol Sulfate 0.083% [Neb] [Albuterol Sulfate] 2.5 mg INH .EVERY 4-6 HOURS PRN #50 nebulization solution PRN Reason: Difficulty In Breathing Furosemide [Lasix] 20 mg PO DAILY #14 tablet Home Medications: Ambulatory Orders Amlodipine Besylate [Norvasc] 10 mg PO DAILY 06/13/19 [Last Taken 06/13/19] Brimonidine Tartrate/Timolol [Combigan 0.2%-0.5% Eye Drops] 1 drop RIGHT EYE QPM 06/13/19 [Last Taken 06/13/19] Calcium Carbonate/Vitamin D3 [Calcium 500-Vit D3 400 Tablet] 1 tab PO BID 06/13/19 [Last Taken 06/13/19] Insulin Aspart [Novolog Flexpen] 10 units SQ ASDIR 06/13/19 [Last Taken 06/13/19] Insulin Glargine,Hum.rec.anlog [Lantus] 5 units SQ QPM 06/13/19 [Last Taken 06/13/19] Levothyroxine Sodium [Synthroid] 125 mcg PO DAILY 06/13/19 [Last Taken 06/13/19] Losartan Potassium 100 mg PO DAILY 06/13/19 [Last Taken 06/13/19] Metformin HCl 1,000 mg PO BID 06/13/19 [Last Taken 06/13/19] Netarsudil Mesylate [Rhopressa] 1 drop EACH EYE QAM 06/13/19 [Last Taken 06/13/19] Rivaroxaban [Xarelto] 15 mg PO QPM 06/13/19 [Last Taken 06/12/19] Sertraline HCl [Zoloft] 25 mg PO QAM 06/13/19 [Last Taken 06/13/19] Albuterol Sulfate 0.083% [Neb] [Albuterol Sulfate] 2.5 mg INH .EVERY 4-6 HOURS PRN #50 nebulization solution 06/16/19 [Last Taken Unknown] Furosemide [Lasix] 20 mg PO DAILY #14 tablet 06/16/19 [Last Taken Unknown] Metoprolol Succinate 50 mg PO DAILY 06/16/19 [Last Taken Unknown] Discharge Plan - Discharge Instructions Activity at Discharge: Ambulate Only With Your Walker, As Per Physical Therapy, Increase Activity as Tolerated Diet at Discharge: Low Salt Diet Additional Instructions: Home oxygen has been ordered, use 2L via nc. You have been qualified for continuous use. Use alb neb treatments every 4-6 hours and as needed for difficulty breathing. Try to maintain a low salt diet, limiting fluids to 2l daily. Report increased leg edema, shortness of breath not resolved with breathing treatments to PCP immediately. Follow up with PCP in 1 week. Go to ER for chest pain, difficulty breathing that does not get better with breathing treatments and/or oxygen, weight gain of 2lbs or more over night. Quality Measures - Quality Measures Quality Measures: Atrial Fibrillation & Atrial Flutter: Chronic Anticoagulation Therapy, Advance Directives, Documentation of Current Medications in Medical Record, Elder Maltreatment Screen and Follow-Up Plan, Heart Failure, Screening for High Blood Pressure and F/U Documented - Current Medications Quality Measure: Measure #130: Documentation of Current Medications Documentation of Current Medications: <Current Medications Documented/Reviewed> [G8473] - Blood Pressure Screening Quality Measure: Screening for High Blood Pressure and Follow-Up Documented Does Patient Have Any of the Following: Active Dx of HTN Blood Pressure Classification: Pre-Hypertensive BP Reading Systolic Measurement: 126 Diastolic Measurement: 76 Screening for High Blood Pressure: Patient Exclusion, Hx of HTN [G9744] - Atrial Fibrillation and Atrial Flutter Quality Measure: Atrial Fibrillation & Atrial Flutter: Chronic Anticoagulation Therapy Does Patient Have Any of the Following: No CHADS2 Risk Stratification: Age 75 or Greater, Hypertension, Diabetes Mellitus Risk Stratification Summary: One or more high risk factors OR more than one moderate risk factor exists. [G8972] Anticoagulation Therapy: <Oral anticoagulant Prescribed> [S4872] - Heart Failure (DAMI/ARB Therapy) Quality Measure: Heart Failure Left Ventricular Systolic Function: Unknown DAMI Inhibitor or ARB Therapy for LVSD: <DAMI Inhibitor or ARB therapy prescribed or currently taken> [4890F] - Heart Failure (Beta-yvonne Therapy) Quality Measure: Heart Failure Left Ventricular Systolic Function: Unknown Beta-Yvonne Therapy for LVEF < 40%: <Beta-Yvonne Therapy Prescribed> [Y7750] - Advance Directives Quality Measure: Measure #47: Care Plan Advance Directives Established: Yes Advance Directives Information Provided To Patient: Already Provided Advance Directives on File: No Living Will: Yes Power of Materials Management Supervisor: No Advance Care Planning: <Care Plan/Decision Maker Documented; Discussed & Documented> [3663F] - Elder Abuse Suspicion Index Screening: Elder Abuse Suspicion Index Screening Rely on people for bathing, dressing, shopping, banking, etc: Yes Prevented from getting food, clothes, medication, etc: No Made to feel shamed or threatened by someone: No Forced to sign papers or use money against will: No Feel afraid, touched in ways not wanted or hurt physically: No Poor eye contact, withdrawn, malnourished, cuts or bruises: No Screening Result: Negative result EASI Reference Information: Bhargav HARRISON, Brayan C, Belen D, Zuleika M.Development and validation of a tool to assist physicians identification of elder abuse: The Elder Abuse Suspicion Index (EASI ). Journal of Elder Abuse and Neglect, 2008; 20 (3): 276-300. - Elder Maltreatment Screen Quality Measures: Elder Maltreatment Screen and Follow-Up Plan Elder Maltreatment Screen: <Negative, No Follow-Up Plan Required> [R8716]
[2019-06-16] MEDS ORDERED: METOPROLOL SUCC 50 MG TABLET PO SCH (10:00)
== END 2019-06-16 11:10 | disposition home health service (06) | DRG 189 ==
LOC: ER 13:03 → MEDSURG 18:24
PROVIDERS: ADMIT Internal Medicine; ATTEND Internal Medicine
DX: J81.0 Acute pulmonary edema (principal); J90 Pleural effusion, not elsewhere classified; I50.9 Heart failure, unspecified; R74.8 Abnormal levels of other serum enzymes; J44.9 Chronic obstructive pulmonary disease, unspecified; I10 Essential (primary) hypertension; E11.9 Type 2 diabetes mellitus without complications; E03.9 Hypothyroidism, unspecified; R94.31 Abnormal electrocardiogram [ECG] [EKG]; Z87.891 Personal history of nicotine dependence; Z95.5 Presence of coronary angioplasty implant and graft; Z98.61 Coronary angioplasty status; I48.0 Paroxysmal atrial fibrillation; Z79.01 Long term (current) use of anticoagulants; Z79.4 Long term (current) use of insulin; Z86.79 Personal history of other diseases of the circulatory system
CPT/HCPCS: 36416; 71045; 71046; 80048; 80053; 82553; 82948; 83735; 83880; 84145; 84443; 84484; 85025; 93005; 93010; 94618; 94640; 94761; 96365; 96374; 96375; 99223; 99233; 99239; 99285; J0696; J1940; J2930; J7613

== ENCOUNTER 2019-07-03 08:21 | Emergency (ER) | payer MEDICARE | END 2019-07-03 08:47 | disposition left against medical advice (07) | LOC: ER 08:21 | DX: Z53.9 Procedure and treatment not carried out, unspecified reason (principal) ==

== ENCOUNTER 2019-07-03 08:22 | Emergency (ER) | payer MEDICARE ==
--- NOTE | 2019-07-03 08:39 | Emergency Department Record ---
History of Present Illness - General Chief Complaint: Trauma Stated Complaint: HEAD INJURY FALL Time Seen by Provider: 07/03/19 08:34 Source: Patient, Family, EMS Mode of Arrival: Ambulatory Limitations: No limitations - History of Present Illness Initial Comments: pt fell while trying to get out of bed. he hit his head. he denies any pain at this time MD Complaint: Fall Onset/Timin -: Hour(s) Loss of Consciousness: No Location: Head Consistency: Now resolved Associated Symptoms: Denies other symptoms - Related Data Previous Rx's Medication Instructions Recorded Albuterol Sulfate 0.083% [Neb] 2.5 mg INH .EVERY 4-6 HOURS PRN 06/16/19 [Albuterol Sulfate] #50 nebulization solution Albuterol Sulfate [Albuterol 8.5 gm IH Q4HR PRN #1 hfa.[email or web address] 06/16/19 Sulfate Hfa] Furosemide [Lasix] 20 mg PO DAILY #14 tablet 06/16/19 Allergies Allergy/AdvReac Type Severity Reaction Status Date / Time No Known Drug Allergies Allergy Verified 03/22/19 10:09 Review of Systems Reviewed: No additional complaints except as noted below Constitutional: Reports: As per HPI. Denies: Chills, Fever, Malaise, Night sweats, Weakness, Weight change Eyes: Reports: As per HPI. Denies: Eye discharge, Eye pain, Photophobia, Vision change ENT: Reports: As per HPI. Denies: Congestion, Dental pain, Ear pain, Epistaxis, Hearing loss, Throat pain Respiratory: Reports: As per HPI. Denies: Cough, Dyspnea, Hemoptysis, Stridor, Wheezes Cardiovascular: Reports: As per HPI. Denies: Arrhythmia, Chest pain, Dyspnea on exertion, Edema, Murmurs, Orthopnea, Palpitations, Paroxysmal nocturnal dyspnea, Rheumatic Fever, Syncope Endocrine: Reports: As per HPI. Denies: Fatigue, Heat or cold intolerance, Polydipsia, Polyuria Gastrointestinal: Reports: As per HPI. Denies: Abdominal pain, Constipation, Diarrhea, Hematemesis, Hematochezia, Melena, Nausea, Vomiting Genitourinary: Reports: As per HPI. Denies: Dysuria, Frequency, Hematuria, Incontinence, Retention, Testicular pain, Testicular mass, Urgency Musculoskeletal: Reports: As per HPI. Denies: Arthralgia, Back pain, Gout, Joint swelling, Myalgia, Neck pain Skin: Reports: As per HPI. Denies: Bruising, Change in color, Change in hair/nails, Lesions, Pruritus, Rash Neurological: Reports: As per HPI. Denies: Abnormal gait, Confusion, Headache, Numbness, Paresthesias, Seizure, Tingling, Tremors, Vertigo, Weakness Psychiatric: Reports: As per HPI. Denies: Anxiety, Auditory hallucinations, Depression, Homicidal thoughts, Suicidal thoughts, Visual hallucinations Hematological/Lymphatic: Reports: As per HPI. Denies: Anemia, Blood Clots, Easy bleeding, Easy bruising, Swollen glands Past Medical History - SOCIAL HISTORY Smoking Status: Former smoker Drug Use: None - RESPIRATORY Hx Respiratory Disorders: Yes Hx Bronchitis: Yes Hx COPD: Yes Hx Dyspnea: Yes - CARDIOVASCULAR Hx Cardio Disorders: Yes Hx Abnormal EKG: Yes Hx Cardiac Cath: Yes Hx Edema: Yes Hx Hypertension: Yes Hx Irregular Heartbeat: Yes - NEURO Hx Neuro Disorders: Yes Hx Headaches: Yes (frequent) - GI Hx GI Disorders: No - Hx Genitourinary Disorders: Yes Hx Prostate Problems: Yes (prostate surgery) - ENDOCRINE Hx Endocrine Disorders: Yes Hx Diabetes: Yes Hx Thyroid Disease: Yes - MUSCULOSKELETAL Hx Musculoskeletal Disorders: Yes Comment:: lumbar laminectomy - PSYCH Hx Psych Problems: No - HEMATOLOGY/ONCOLOGY Hx Hematology/Oncology Disorders: No Family Medical History Hx Diabetes: Father, Mother Hx Heart Disease: Father Physical Exam - General General Appearance: Alert, Oriented x3, Cooperative, No acute distress - Head Head exam: Normal inspection - Eye Eye exam: Normal appearance, PERRL, EOMI Pupils: Normal accommodation - ENT ENT exam: Normal exam, Mucous membranes moist, Normal external ear exam, Normal orophraynx Ear exam: Normal external inspection. negative: External canal tenderness Nasal Exam: Normal inspection. negative: Discharge, Sinus tenderness Mouth exam: Normal external inspection, Tongue normal Teeth exam: Normal inspection. negative: Dental caries Throat exam: Normal inspection. negative: Tonsillar erythema, Tonsillar exudate - Neck Neck exam: Normal inspection, Full ROM. negative: Tenderness - Respiratory Respiratory exam: Normal lung sounds bilaterally. negative: Respiratory distress - Cardiovascular Cardiovascular Exam: Regular rate, Normal rhythm, Normal heart sounds - GI/Abdominal GI/Abdominal exam: Soft, Normal bowel sounds. negative: Tenderness - Rectal Rectal exam: Deferred - exam: Deferred - Extremities Extremities exam: Normal inspection, Full ROM, Normal capillary refill. negative: Tenderness - Back Back exam: Reports: Normal inspection, Full ROM. Denies: Muscle spasm, Rash noted, Tenderness - Neurological Neurological exam: Alert, CN II-XII intact, Normal gait, Oriented X3 - Psychiatric Psychiatric exam: Normal affect, Normal mood - Skin Skin exam: Dry, Intact, Normal color, Warm Course - Reevaluation(s) Reevaluation #1: 07/03/19 10:02 pt did well entire stay 07/03/19 10:05 cts are neg for acute injury 07/03/19 10:[address] does show pleural effusions unrelated to fall Medical Decision Making - Lab Data Result diagrams: 07/03/19 08:40 07/03/19 08:40 Disposition Disposition: Discharge Clinical Impression: Head injury Qualifiers: Encounter type: initial encounter Qualified Code(s): S09.90XA - Unspecified injury of head, initial encounter Fall Qualifiers: Encounter type: initial encounter Qualified Code(s): W19.XXXA - Unspecified fall, initial encounter Disposition: Home, Self-Care Condition: (1) Good Instructions: Head Injury (ED) Additional Instructions: follow up with family doctor. return sooner if worse Forms: Patient Portal Access Quality - Quality Measures Quality Measures: N/A - Blood Pressure Screening Does Patient Have Any of the Following: Active Dx of HTN Blood Pressure Classification: Hypertensive Reading Systolic Measurement: 174 Diastolic Measurement: 70 Screening for High Blood Pressure: Patient Exclusion, Hx of HTN [G9744]
[2019-07-03 08:46] LABS: ABSOLUTE NEUTROPHIL COUNT 4.98; BASO % 0.6 % (0-6); EOS % 1.7 % (0-6); GRAN % 75.7 % (47-80); HEMATOCRIT 35.7 % (42.0-52.0); HEMOGLOBIN 10.8 gm/dl (14.0-18.0); LYMPH % 11.3 % (16-45); MEAN CORPUSCULAR HEMOGLOBIN 29.3 pg (27-33); MEAN CORPUSCULAR HGB CONC 30.3 g/dl (32-36); MEAN PLATELET VOLUME 9.4 fl (7.4-10.4); MONO % 10.7 % (0-9); PLATELET COUNT 295 K/uL (130-400); RED BLOOD COUNT 3.68 M/uL (4.40-5.70); WHITE BLOOD COUNT W/O DIFF 6.6 K/uL (4.2-12.2)
[2019-07-03 08:55] LABS: BLOOD UREA NITROGEN 21 mg/dL (8-23); EST GLOMERULAR FILTRATION RATE > 60 mL/min
[2019-07-03 08:57] LABS: INR 1.2; PROTHROMBIN TIME (PATIENT) 12.2 SECONDS (9.5-12.1)
[2019-07-03 08:58] LABS: GLUCOSE,RANDOM 140 mg/dL (74-109)
--- NOTE | 2019-07-05 14:31 | CT SCAN REPORT ---
EXAM: CT SCAN HEAD WO CONTRAST HISTORY: FALL STRIKING BACK OF HEAD. NO LOSS OF CONSCIOUSNESS. TECHNIQUE: Routine noncontrast CT examination of the brain. COMPARISON: CT brain without contrast dated 10/30/2018. FINDINGS: There is again noted moderate dilatation of the subarachnoid spaces associated with ventriculomegaly, stable, consistent with generalized atrophy. Diffuse periventricular and subcortical white matter lucencies are again noted in each cerebral hemisphere consistent with chronic microvascular ischemia. Benign bilateral basal ganglia calcifications redemonstrated. There is a chronic-appearing lacunar infarct within the right caudate nucleus body. This is not visualized on the prior examination. Additionally, there are areas of chronic-appearing white matter infarct within the anterior right parietal lobe. In composite, these measure 1.4 x 2.6 cm. These are also not visualized with confidence on the prior examination. There is also a chronic-appearing lacunar infarct in the posterior aspect of the right lentiform nucleus, also not previously demonstrated. No other area of abnormally increased or decreased attenuation is noted throughout the brain substance. No abnormal extraaxial fluid collection is seen. No acute skull fracture is identified. There are two focal craniotomy defects (juana holes) on the left, one in the frontal bone and one in the parietal bone. These are unchanged. There is mucosal thickening within multiple paranasal sinuses. No air fluid level, however, seen. The mastoid air cells appear clear. Postcataract surgery changes are present. The orbits, as visualized, are otherwise normal in appearance. There is moderate atherosclerotic calcification of the distal vertebral arteries and distal aspects of the internal carotid arteries. IMPRESSION: 1. NO CT EVIDENCE OF ACUTE MAJOR VESSEL INFARCT, INTRACRANIAL HEMORRHAGE, MASS, NOR SKULL FRACTURE. 2. GENERALIZED ATROPHY WITH VENTRICULOMEGALY REDEMONSTRATED. 3. DIFFUSE WHITE MATTER LUCENCIES AGAIN NOTED IN EACH CEREBRAL HEMISPHERE CONSISTENT WITH CHRONIC MICROVASCULAR ISCHEMIA. 4. 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 THESE ARE NOT DEMONSTRATED ON THE 10/30/2018 EXAMINATION. ADDITIONALLY, THERE IS EVIDENCE OF WHITE MATTER INFARCT/INFARCTS IN THE RIGHT PARIETAL LOBE MEASURING 1.4 X 1.6 CM IN COMPOSITE. THESE APPEAR CHRONIC, ALSO NOT PRESENT ON THE 10/30/2018 EXAMINATION. JOB [facility]BER: [id number] [facility]
--- NOTE | 2019-07-06 08:16 | CT SCAN REPORT ---
EXAM: CT OF THE CERVICAL SPINE WITHOUT CONTRAST HISTORY: FALL STRIKING BACK OF HEAD. TECHNIQUE: Routine thin collimation helical CT examination of the cervical spine was performed without intravenous contrast. Coronal and sagittal reformatted images are generated and reviewed. Comparison: CT of the cervical spine without contrast dated 10/30/18. FINDINGS: There is borderline to mild diffuse osteopenia. Straightening of the normal cervical lordosis is redemonstrated consistent with positioning or muscle spasm. The vertebral bodies are otherwise normal in alignment and height. No acute fracture, destructive bone lesion, or prevertebral soft tissue swelling. Moderate osteoarthritic changes of the atlantodental joint redemonstrated. Multilevel degenerative disk/degenerative end plate changes redemonstrated, mild to moderate in degree with anterior bridging marginal osteophytes visualized from the C3-C4 through the C7-T1 levels. No new gross osseous cervical spinal stenosis. Multilevel bilateral facet arthropathy is present most pronounced on the right where it is mild to moderate in degree. There is associated multilevel bilateral neural foraminal narrowing, right greater than left. Benign appearing soft tissue calcification is again noted posteriorly at the C7 level. There is atherosclerotic calcification of the carotid arteries. There is atrophy of the visualized brain. A coarsely calcified left thyroid lobe nodule measuring 5.5 mm is again demonstrated, likely benign. There is an at least moderate sized left pleural effusion with fluid in the left apex. This is unchanged or slightly worsened in the interval. There is an at least small dependent right pleural effusion. Post median sternotomy changes are present. There are mixed opacities in the left lung apex. This may relate to edema, atelectasis or infiltrate. IMPRESSION: 1. NO ACUTE FRACTURE, SUBLUXATION OR PREVERTEBRAL SOFT TISSUE SWELLING. 2. MULTILEVEL DEGENERATIVE CHANGES OF THE CERVICAL SPINE, DETAILED ABOVE. 3. POST MEDIAN STERNOTOMY CHANGES. BILATERAL PLEURAL EFFUSIONS. JOB NUMBER: [id number] [facility]
== END 2019-07-03 10:13 | disposition home or self-care (01) ==
LOC: ER 08:22
DX: S09.90XA Unspecified injury of head, initial encounter (principal); R51 Headache; J44.9 Chronic obstructive pulmonary disease, unspecified; E11.42 Type 2 diabetes mellitus with diabetic polyneuropathy; Z79.4 Long term (current) use of insulin; I10 Essential (primary) hypertension; Z87.891 Personal history of nicotine dependence; W06.XXXA Fall from bed, initial encounter; Y92.003 Bedroom of unspecified non-institutional (private) residence as the place of occurrence of the external cause; Z79.01 Long term (current) use of anticoagulants; E03.4 Atrophy of thyroid (acquired); E78.00 Pure hypercholesterolemia, unspecified; I48.0 Paroxysmal atrial fibrillation; I73.9 Peripheral vascular disease, unspecified; R41.4 Neurologic neglect syndrome; R53.1 Weakness; G47.33 Obstructive sleep apnea (adult) (pediatric); Z99.89 Dependence on other enabling machines and devices; Z95.5 Presence of coronary angioplasty implant and graft; Z51.81 Encounter for therapeutic drug level monitoring
CPT/HCPCS: 70450; 72125; 80048; 80061; 83036; 83735; 84450; 84460; 85025; 85610; 85730; 99284